=== PATIENT | female | born 1950 | race Caucasian/White ===

== ENCOUNTER → 2020-02-11 | Outpatient (CLI) | payer MEDICARE ==
[2020-02-11 10:44] LABS: BASOPHILS ABSOLUTE AUTO 0.04 K/mm3 (0.00-0.23); BASOPHILS PERCENT AUTO 1 % (0-2); EOSINOPHILS ABSOLUTE AUTO 0.41 K/mm3 (0.00-0.68); EOSINOPHILS PERCENT AUTO 6 % (0-6); Hematocrit 31.9 % (33.0-51.0); Hemoglobin 10.1 g/dL (11.5-16.0); IMMATURE GRAN ABSOLUTE AUTO 0.02 K/mm3 (0.00-0.10); IMMATURE GRAN PERCENT AUTO 0 % (0-1); LYMPHOCYTES ABSOLUTE AUTO 1.62 K/mm3 (0.84-5.20); LYMPHOCYTES PERCENT AUTO 25 % (21-46); MONOCYTES ABSOLUTE AUTO 0.58 K/mm3 (0.16-1.47); MONOCYTES PERCENT AUTO 9 % (4-13); Mean Corpuscular HGB 26.3 pg (26.0-34.0); Mean Corpuscular HGB Conc 31.7 g/dL (31.5-36.5); Mean Corpuscular Volume 83 fL (80-100); Mean Platelet Volume 8.2 fL (9.1-12.4); NEUTROPHILS ABSOLUTE AUTO 3.74 K/mm3 (1.96-9.15); NEUTROPHILS PERCENT AUTO 58 % (41-73); Platelet Count 303 K/mm3 (150-400); RDW Coefficient Variation 14.8 % (11.7-14.2); RDW Standard Deviation 44.5 fL (35.1-46.3); Red Blood Cell Count 3.84 M/mm3 (3.80-5.20); White Blood Cell Count 6.41 K/mm3 (4.00-11.30)
[2020-02-11 11:05] LABS: Alanine Aminotransfer (ALT/SGP 11 U/L (12-78); Albumin, Blood 3.8 g/dL (3.4-5.0); Albumin/Globulin Ratio 0.8 (0.8-1.8); Alk Phos 101 U/L (40-126); Anion Gap 10 mmol/L (6-16); Aspartate Aminotrans (AST/SGOT 14 U/L (12-37); Bilirubin, Total 0.2 mg/dL (0.1-1.0); Blood Urea Nitrogen 21 mg/dL (8-24); Bun/Creatinine Ratio 21.4 (12.0-20.0); CHOL/HDL RATIO 4.3; CO2, Blood 26 mmol/L (21-32); Calcium, Blood 9.2 mg/dL (8.5-10.1); Chloride, Blood 103 mmol/L (98-108); Cholesterol 179 mg/dL (50-200); Creatinine, Blood 0.98 mg/dL (0.40-1.00); Free Thyroxine 1.06 ng/dL (0.70-1.60); Globulin, Blood 4.6 g/dL (2.2-4.0); Glomerular Filtration Rate 56 (60-); Glucose, Blood 132 mg/dL (70-99); HDL Cholesterol 42 mg/dL (>39); LDL/HDL RATIO 2.8; Low Density Lipoprotein Chol 117 mg/dL (<110); Potassium, Blood 4.3 mmol/L (3.5-5.5); Sodium, Blood 139 mmol/L (136-145); Thyroid Stimulating Hormone 1.383 uIU/mL (0.360-4.800); Total Protein, Blood 8.4 g/dL (6.4-8.2); Triglycerides 102 mg/dL (30-160); Very Low Density Lipoprot Chol 20 mg/dL (6-32)
[2020-02-11 13:09] LABS: Percent Saturation 15.4 % (15.0-50.0)
== END | disposition home or self-care (01) ==
LOC: LAB EV 10:37 → LAB SHORT 10:37
PROVIDERS: General Practice
DX: T81.30XA Disruption of wound, unspecified, initial encounter (principal); E11.37X1 Type 2 diabetes mellitus with diabetic macular edema, resolved following treatment, right eye; R53.81 Other malaise; D64.9 Anemia, unspecified
CPT/HCPCS: 80053; 80061; 82728; 83036; 83540; 83550; 84439; 84443; 85025; 87070; 87075; 87077; 87147; 87186; 87205

== ENCOUNTER 2020-03-01 00:26 | Day surgery (SDC) | payer MEDICARE | END 2020-03-01 22:49 | disposition home or self-care (01) | LOC: WOUND 00:26 | DX: E11.622 Type 2 diabetes mellitus with other skin ulcer (principal); L97.816 Non-pressure chronic ulcer of other part of right lower leg with bone involvement without evidence of necrosis ==

== ENCOUNTER 2020-03-10 00:09 | Day surgery (SDC) | payer MEDICARE ==
[2020-03-10] MEDS ORDERED: LEVO750 IV (11:50)
[2020-03-10] MEDS ORDERED: METF500 PO (11:51)
[2020-03-10] MEDS ORDERED: LISI5 PO (11:51)
[2020-03-10] MEDS ORDERED: ASPIR 8181 M1 PO (11:52)
[2020-03-10] MEDS ORDERED: HYDROCODONE-AC1 EAC7 PO (11:52)
[2020-03-10] MEDS ORDERED: Garlic1 EAC1 PO (11:52)
[2020-03-10] MEDS ORDERED: Vitamin D2000 UNIT PO (11:53)
[2020-03-10] MEDS ORDERED: PIOG15 PO (11:53)
--- NOTE | 2020-03-10 12:40 | NUR ---
PT REQUESTING IV REMOVED, HAS CONCERNS ABOUT HER "LARGE DOGS". PT TEACHING THAT MAY GET A POWERGLIDE PLACED THURSDAY, PT IS SCHEDULED FOR 14 DAYS BERNARDO. PT TO DETERMINE THAT AT LATER TIME.
== END 2020-03-10 12:36 | disposition home or self-care (01) ==
LOC: ATC 00:09
DX: L03.115 Cellulitis of right lower limb (principal); E11.622 Type 2 diabetes mellitus with other skin ulcer; L97.816 Non-pressure chronic ulcer of other part of right lower leg with bone involvement without evidence of necrosis
CPT/HCPCS: 96365; J1956

== ENCOUNTER 2020-03-11 00:23 | Day surgery (SDC) | payer MEDICARE ==
[~2020-03-11 00:23] MED LIST: ASPIR 8181 M1 PO; Garlic1 EAC1 PO; HYDROCODONE-AC1 EAC7 PO; LEVO750 IV; LISI5 PO; METF500 PO; PIOG15 PO; Vitamin D2000 UNIT PO
== END 2020-03-11 11:19 | disposition home or self-care (01) ==
LOC: ATC 00:23
DX: L03.115 Cellulitis of right lower limb (principal); E11.622 Type 2 diabetes mellitus with other skin ulcer; L97.816 Non-pressure chronic ulcer of other part of right lower leg with bone involvement without evidence of necrosis
CPT/HCPCS: 96365; J1956

== ENCOUNTER 2020-03-12 00:26 | Day surgery (SDC) | payer MEDICARE ==
--- NOTE | 2020-03-12 12:01 | NUR ---
ATTEMPTED POWERGLIDE, PT AGITATED FROM PRIOR TO GOING INTO ROOM. PT VERY ANXIOUS T/O PROCEDURE, UNABLE TO GET POWERGLIDE, LIDOCAINE USED. PT C/O PAIN AT SITE, NO APPEARANT SWELLING OR REDNESS, OFFERED WARM/COLD PACKS AND PRESSURE DRSG, PT REFUSES ALL THINGS OFFERED.
--- NOTE | 2020-03-12 13:06 | NUR ---
TALKED WITH JOSE HYMAN WHO IS PRESCRIBING MD ABOUT PT NOT BEING HAPPY ABOUT COMING IN FOR IV ABX. PRESCRIPTION FOR ORAL ABX GIVEN TO PT PER JOSE STEIN, PT VERY HAPPY WITH THIS.
== END 2020-03-12 13:05 | disposition home or self-care (01) ==
LOC: ATC 00:26
DX: L03.115 Cellulitis of right lower limb (principal); E11.622 Type 2 diabetes mellitus with other skin ulcer; L97.816 Non-pressure chronic ulcer of other part of right lower leg with bone involvement without evidence of necrosis
CPT/HCPCS: 96365; J1956

== ENCOUNTER 2020-03-15 00:27 | Day surgery (SDC) | payer MEDICARE | END 2020-03-15 22:38 | disposition home or self-care (01) | LOC: WOUND | DX: E11.622 Type 2 diabetes mellitus with other skin ulcer (principal); L03.115 Cellulitis of right lower limb; L97.816 Non-pressure chronic ulcer of other part of right lower leg with bone involvement without evidence of necrosis; Z79.82 Long term (current) use of aspirin; Z79.84 Long term (current) use of oral hypoglycemic drugs ==

== ENCOUNTER 2020-03-22 00:14 | Day surgery (SDC) | payer MEDICARE | END 2020-03-22 23:12 | disposition home or self-care (01) | LOC: WOUND 00:14 | DX: L97.816 Non-pressure chronic ulcer of other part of right lower leg with bone involvement without evidence of necrosis (principal); E11.621 Type 2 diabetes mellitus with foot ulcer; L97.512 Non-pressure chronic ulcer of other part of right foot with fat layer exposed; L03.115 Cellulitis of right lower limb ==

== ENCOUNTER 2020-03-29 00:22 | Day surgery (SDC) | payer MEDICARE | END 2020-03-29 22:54 | disposition home or self-care (01) | LOC: WOUND 00:22 | DX: E11.621 Type 2 diabetes mellitus with foot ulcer (principal); L97.816 Non-pressure chronic ulcer of other part of right lower leg with bone involvement without evidence of necrosis; L03.115 Cellulitis of right lower limb ==

== ENCOUNTER 2020-04-05 00:14 | Day surgery (SDC) | payer MEDICARE | END 2020-04-05 22:43 | disposition home or self-care (01) | LOC: WOUND 00:14 | DX: L03.115 Cellulitis of right lower limb (principal); E11.622 Type 2 diabetes mellitus with other skin ulcer; L97.816 Non-pressure chronic ulcer of other part of right lower leg with bone involvement without evidence of necrosis; Z79.82 Long term (current) use of aspirin; Z79.899 Other long term (current) drug therapy ==

== ENCOUNTER → 2020-05-02 | Outpatient (CLI) | payer MEDICARE ==
[2020-05-02 17:56] LABS: BASOPHILS ABSOLUTE AUTO 0.08 K/mm3 (0.00-0.23); BASOPHILS PERCENT AUTO 1 % (0-2); EOSINOPHILS ABSOLUTE AUTO 0.24 K/mm3 (0.00-0.68); EOSINOPHILS PERCENT AUTO 3 % (0-6); Hematocrit 35.7 % (33.0-51.0); Hemoglobin 10.9 g/dL (11.5-16.0); IMMATURE GRAN ABSOLUTE AUTO 0.01 K/mm3 (0.00-0.10); IMMATURE GRAN PERCENT AUTO 0 % (0-1); LYMPHOCYTES ABSOLUTE AUTO 1.88 K/mm3 (0.84-5.20); LYMPHOCYTES PERCENT AUTO 27 % (21-46); MONOCYTES ABSOLUTE AUTO 0.55 K/mm3 (0.16-1.47); MONOCYTES PERCENT AUTO 8 % (4-13); Mean Corpuscular HGB 26.7 pg (26.0-34.0); Mean Corpuscular HGB Conc 30.5 g/dL (31.5-36.5); Mean Corpuscular Volume 88 fL (80-100); Mean Platelet Volume 8.5 fL (9.1-12.4); NEUTROPHILS ABSOLUTE AUTO 4.21 K/mm3 (1.96-9.15); NEUTROPHILS PERCENT AUTO 61 % (41-73); Platelet Count 326 K/mm3 (150-400); RDW Coefficient Variation 15.7 % (11.7-14.2); RDW Standard Deviation 51.1 fL (35.1-46.3); Red Blood Cell Count 4.08 M/mm3 (3.80-5.20); White Blood Cell Count 6.97 K/mm3 (4.00-11.30)
[2020-05-02 18:15] LABS: C-REACTIVE PROTEIN, EXT RANGE <0.290 mg/dL (0.000-0.300)
[2020-05-02 18:20] LABS: Anion Gap 6 mmol/L (6-16); Blood Urea Nitrogen 17 mg/dL (8-24); Bun/Creatinine Ratio 16.8 (12.0-20.0); CO2, Blood 25 mmol/L (21-32); Calcium, Blood 9.4 mg/dL (8.5-10.1); Chloride, Blood 108 mmol/L (98-108); Creatinine, Blood 1.01 mg/dL (0.40-1.00); Glomerular Filtration Rate 58 (60-); Glucose, Blood 127 mg/dL (70-99); Potassium, Blood 4.3 mmol/L (3.5-5.5); Sodium, Blood 139 mmol/L (136-145)
== END | disposition home or self-care (01) ==
LOC: LAB SHORT 15:22 → LAB SRC 15:22
PROVIDERS: Family Medicine
DX: M86.271 Subacute osteomyelitis, right ankle and foot (principal); Z79.2 Long term (current) use of antibiotics
CPT/HCPCS: 80048; 85025; 86140

== ENCOUNTER → 2020-05-21 | Outpatient (CLI) | payer MEDICARE ==
[2020-05-21 16:57] LABS: BASOPHILS ABSOLUTE AUTO 0.06 K/mm3 (0.00-0.23); BASOPHILS PERCENT AUTO 1 % (0-2); EOSINOPHILS ABSOLUTE AUTO 0.36 K/mm3 (0.00-0.68); EOSINOPHILS PERCENT AUTO 4 % (0-6); Hematocrit 36.1 % (33.0-51.0); IMMATURE GRAN ABSOLUTE AUTO 0.02 K/mm3 (0.00-0.10); IMMATURE GRAN PERCENT AUTO 0 % (0-1); LYMPHOCYTES ABSOLUTE AUTO 1.79 K/mm3 (0.84-5.20); LYMPHOCYTES PERCENT AUTO 22 % (21-46); MONOCYTES ABSOLUTE AUTO 0.48 K/mm3 (0.16-1.47); MONOCYTES PERCENT AUTO 6 % (4-13); Mean Corpuscular HGB Conc 30.5 g/dL (31.5-36.5); Mean Corpuscular Volume 89 fL (80-100); Mean Platelet Volume 8.6 fL (9.1-12.4); NEUTROPHILS ABSOLUTE AUTO 5.38 K/mm3 (1.96-9.15); NEUTROPHILS PERCENT AUTO 67 % (41-73); Platelet Count 333 K/mm3 (150-400); RDW Coefficient Variation 14.8 % (11.7-14.2); RDW Standard Deviation 47.4 fL (35.1-46.3); Red Blood Cell Count 4.08 M/mm3 (3.80-5.20); White Blood Cell Count 8.09 K/mm3 (4.00-11.30)
[2020-05-21 17:23] LABS: C-REACTIVE PROTEIN, EXT RANGE <0.290 mg/dL (0.000-0.300)
[2020-05-21 17:29] LABS: Alanine Aminotransfer (ALT/SGP 21 U/L (12-78); Albumin, Blood 3.5 g/dL (3.4-5.0); Albumin/Globulin Ratio 0.9 (0.8-1.8); Alk Phos 78 U/L (50-136); Anion Gap 7 mmol/L (6-16); Aspartate Aminotrans (AST/SGOT 11 U/L (12-37); Bilirubin, Total 0.1 mg/dL (0.1-1.0); Blood Urea Nitrogen 19 mg/dL (8-24); Bun/Creatinine Ratio 24.1 (12.0-20.0); CO2, Blood 24 mmol/L (21-32); Chloride, Blood 105 mmol/L (98-108); Creatinine, Blood 0.79 mg/dL (0.40-1.00); Globulin, Blood 4.1 g/dL (2.2-4.0); Glomerular Filtration Rate >60 (60-); Glucose, Blood 279 mg/dL (70-99); Potassium, Blood 4.3 mmol/L (3.5-5.5); Sodium, Blood 136 mmol/L (136-145); Total Protein, Blood 7.6 g/dL (6.4-8.2)
== END | disposition home or self-care (01) ==
LOC: LAB HH 15:04
PROVIDERS: Family Medicine
DX: T84.622A Infection and inflammatory reaction due to internal fixation device of right tibia, initial encounter (principal); M86.471 Chronic osteomyelitis with draining sinus, right ankle and foot; B95.2 Enterococcus as the cause of diseases classified elsewhere; B95.61 Methicillin susceptible Staphylococcus aureus infection as the cause of diseases classified elsewhere
CPT/HCPCS: 80053; 85025; 86140

== ENCOUNTER 2020-05-28 00:30 | Day surgery (SDC) | payer MEDICARE | END 2020-05-28 22:55 | disposition home or self-care (01) | LOC: WOUND 00:30 | DX: E11.622 Type 2 diabetes mellitus with other skin ulcer (principal); L97.816 Non-pressure chronic ulcer of other part of right lower leg with bone involvement without evidence of necrosis; G25.81 Restless legs syndrome ==

== ENCOUNTER 2020-06-25 01:01 | Day surgery (SDC) | payer MEDICARE | END 2020-06-25 23:19 | disposition home or self-care (01) | LOC: WOUND 01:01 | DX: E11.622 Type 2 diabetes mellitus with other skin ulcer (principal); L97.816 Non-pressure chronic ulcer of other part of right lower leg with bone involvement without evidence of necrosis; Z79.84 Long term (current) use of oral hypoglycemic drugs | CPT/HCPCS: G0463 ==

== ENCOUNTER 2020-07-05 00:10 | Day surgery (SDC) | payer MEDICARE | END 2020-07-05 22:40 | disposition home or self-care (01) | LOC: WOUND 00:10 | DX: T81.30XA Disruption of wound, unspecified, initial encounter (principal); E11.52 Type 2 diabetes mellitus with diabetic peripheral angiopathy with gangrene; E11.622 Type 2 diabetes mellitus with other skin ulcer; L97.816 Non-pressure chronic ulcer of other part of right lower leg with bone involvement without evidence of necrosis; I96 Gangrene, not elsewhere classified; E11.40 Type 2 diabetes mellitus with diabetic neuropathy, unspecified; I10 Essential (primary) hypertension; Z79.2 Long term (current) use of antibiotics; Z79.82 Long term (current) use of aspirin; Z79.84 Long term (current) use of oral hypoglycemic drugs; Z79.899 Other long term (current) drug therapy; Z88.8 Allergy status to other drugs, medicaments and biological substances; Y83.8 Other surgical procedures as the cause of abnormal reaction of the patient, or of later complication, without mention of misadventure at the time of the procedure | CPT/HCPCS: G0463 ==

== ENCOUNTER 2020-07-12 00:48 | Day surgery (SDC) | payer MEDICARE ==
[2020-07-25] MEDS ORDERED: GABA100 PO (13:24)
== END 2020-07-12 22:52 | disposition home or self-care (01) ==
LOC: WOUND 00:48
DX: T81.31XA Disruption of external operation (surgical) wound, not elsewhere classified, initial encounter (principal); E11.622 Type 2 diabetes mellitus with other skin ulcer; L97.816 Non-pressure chronic ulcer of other part of right lower leg with bone involvement without evidence of necrosis; E11.52 Type 2 diabetes mellitus with diabetic peripheral angiopathy with gangrene; I96 Gangrene, not elsewhere classified; E11.42 Type 2 diabetes mellitus with diabetic polyneuropathy; I10 Essential (primary) hypertension; Z79.82 Long term (current) use of aspirin; Z79.84 Long term (current) use of oral hypoglycemic drugs; Z79.2 Long term (current) use of antibiotics; Z79.899 Other long term (current) drug therapy; Z88.8 Allergy status to other drugs, medicaments and biological substances; Y83.8 Other surgical procedures as the cause of abnormal reaction of the patient, or of later complication, without mention of misadventure at the time of the procedure
CPT/HCPCS: G0463

== ENCOUNTER 2020-07-26 06:06 | Day surgery (SDC) | payer MEDICARE ==
[~2020-07-26 06:06] MED LIST changes: +GABA100 PO
--- NOTE | 2020-07-26 12:08 | NUR ---
LEFT GROIN SOFT AND NON TENDER. INSTRUCTION AND PRECAUTIONS VERBALIZED TO PATIENT ABOUT LEFT GROIN. HEAD OF BED UP 30 DEGREE.
--- NOTE | 2020-07-26 12:26 | NUR ---
LEFT GROIN SITE STABLE. PATIENT AMBULATED TO REST ROOM WITH VERBAL TEACHING AND INSTRUCTION ON GROIN SITE CARE. LEFT GROIN STABLE AFTER AMBULATION.
--- NOTE | 2020-07-26 12:29 | NUR ---
IV SITE DCED WITHG CATHETER INTACT. GROIN SITE STABLE AFTER AMBULATING, PATIENT DRESSED.
--- NOTE | 2020-07-26 12:35 | NUR ---
PATIENT DISCHARGED HOME VIA WHEELCHAIR. RIDE HOME WITH FRIEND. PATIENT A&O GROIN SITE STABLE.
== END 2020-07-26 13:06 | disposition home or self-care (01) ==
LOC: MHTC 06:06
DX: E11.51 Type 2 diabetes mellitus with diabetic peripheral angiopathy without gangrene (principal); I70.201 Unspecified atherosclerosis of native arteries of extremities, right leg; E11.622 Type 2 diabetes mellitus with other skin ulcer; L97.819 Non-pressure chronic ulcer of other part of right lower leg with unspecified severity; E78.00 Pure hypercholesterolemia, unspecified; I10 Essential (primary) hypertension; E11.69 Type 2 diabetes mellitus with other specified complication; M86.68 Other chronic osteomyelitis, other site; M79.7 Fibromyalgia; M19.90 Unspecified osteoarthritis, unspecified site; E78.5 Hyperlipidemia, unspecified; G25.81 Restless legs syndrome; Z79.82 Long term (current) use of aspirin; Z79.84 Long term (current) use of oral hypoglycemic drugs; Z79.899 Other long term (current) drug therapy; Z88.8 Allergy status to other drugs, medicaments and biological substances
CPT/HCPCS: 37228; 75625; 75716; 75774; 99152; 99153; C1725; C1760; C1769; C1887; C1894; J1644; J2250; J3010; J7030; Q9967

== ENCOUNTER → 2022-09-23 | Outpatient (CLI) | payer MEDICARE | END | disposition home or self-care (01) | LOC: LAB SHORT 11:00 | DX: R30.0 Dysuria (principal) | CPT/HCPCS: 87086 ==

== ENCOUNTER 2024-09-27 13:46 | Inpatient (IN) | payer MEDICARE ==
[~2024-09-27] VITALS: Ht 175.3 cm; Wt 63.6 kg
[2024-09-27] MEDS ORDERED: NS 1,000 ML IV SCH (14:25)
[2024-09-27 15:27] LABS: BASOPHILS ABSOLUTE AUTO 0.03 K/mm3 (0.00-0.23); BASOPHILS PERCENT AUTO 0 % (0-2); EOSINOPHILS PERCENT AUTO 0 % (0-6); Hemoglobin 7.7 g/dL (11.5-16.0); IMMATURE GRAN ABSOLUTE AUTO 0.06 K/mm3 (0.00-0.10); IMMATURE GRAN PERCENT AUTO 1 % (0-1); LYMPHOCYTES ABSOLUTE AUTO 0.61 K/mm3 (0.84-5.20); LYMPHOCYTES PERCENT AUTO 5 % (21-46); MONOCYTES ABSOLUTE AUTO 0.84 K/mm3 (0.16-1.47); MONOCYTES PERCENT AUTO 7 % (4-13); Mean Corpuscular HGB 28.4 pg (26.0-34.0); Mean Corpuscular HGB Conc 32.1 g/dL (31.5-36.5); Mean Corpuscular Volume 89 fL (80-100); Mean Platelet Volume 8.7 fL (9.1-12.4); NEUTROPHILS ABSOLUTE AUTO 10.45 K/mm3 (1.96-9.15); NEUTROPHILS PERCENT AUTO 87 % (41-73); Platelet Count 272 K/mm3 (150-400); RDW Coefficient Variation 13.6 % (11.7-14.2); RDW Standard Deviation 44.2 fL (35.1-46.3); Red Blood Cell Count 2.71 M/mm3 (3.80-5.20); White Blood Cell Count 11.99 K/mm3 (4.00-11.30)
[2024-09-27 15:54] LABS: Albumin/Globulin Ratio 0.5 (0.8-1.8); Bilirubin, Total 0.4 mg/dL (0.1-1.0); Bun/Creatinine Ratio 16.3 (12.0-20.0); Calcium, Blood 7.7 mg/dL (8.5-10.1); Creatinine, Blood 0.8 mg/dL (0.40-1.00); Magnesium, Blood 1.5 mg/dL (1.6-2.4); Potassium, Blood 3.4 mmol/L (3.5-5.5)
[2024-09-27 16:16] LABS: Influenza A, PCR NEGATIVE (NEGATIVE); Influenza B, PCR NEGATIVE (NEGATIVE); Resp Syncytial Virus, PCR NEGATIVE (NEGATIVE); SARS-Cov-2 (COVID-19) PCR, MMC NEGATIVE (NEGATIVE)
[2024-09-27] MEDS ORDERED: Ondansetron HCl 2 MG / ML 2ML Vial IV PRN (18:40)
[2024-09-27] MEDS ORDERED: Lactated Ringer's 1,000 ML IV SCH (18:40)
[2024-09-27] MEDS ORDERED: Magnesium Sulf 2 GM/Water 50ML 50 ML IV STA (18:42)
[2024-09-27] MEDS ORDERED: NS 1,000 ML IV ONE (18:45)
[2024-09-27] MEDS ORDERED: CeFAZolin Sodium 2,000 MG in NS 100 ML IV ONE (18:45)
[2024-09-27 18:48] LABS: Source, Urine Foley catheter
[2024-09-27] MEDS ORDERED: Potassium Chloride 20 MEQ TabCR PO ONE (19:00)
[2024-09-27 19:04] LABS: Percent Saturation 7.5 % (15.0-50.0)
[2024-09-27 19:10] LABS: Appearance, Urine Clear (Clear); Bilirubin, Urine Neg (Neg); Blood, Urine Neg (Neg); Color, Urine Yellow (P-Yellow); Glucose Qualitative, Urine 2+ (Neg); Ketones, Urine Neg (Neg); Leukocyte Esterase, Urine 2+ (Neg); Nitrite, Urine Neg (Neg); Protein, Urine 1+ (Neg); Specific Gravity, Urine 1.005 (1.003-1.022); Urobilinogen, Urine NORM (Normal)
[2024-09-27 19:18] LABS: Base Excess Venous -0.4 mmol/L; Bicarbonate Venous 24.1 mmol/L (24.0-30.0); PCO2 Venous 35.6 mmHg (38-42); pH Blood Venous 7.43 (7.34-7.37)
[2024-09-27 19:18] LABS: Bacteria Many /hpf; Squamous Epithelial Cells Few /hpf (Few)
[2024-09-27 19:19] LABS: Yeast/Fungi Urine Rare /hpf
[2024-09-27] MEDS ORDERED: FLU VACC TS2024-25(6MOS UP)/PF 45 MCG/0.5 ML SYRINGE IM ONE (20:00)
[2024-09-27] MEDS ORDERED: NS 250 ML IV PRN (20:40)
[2024-09-27] MEDS ORDERED: Lactobacil 2-S.Thermo-Bifido 1 1 Cap PO SCH (21:00)
[2024-09-27] MEDS ORDERED: Dextrose 50% 50 ML Syringe IV PRN ×2 (21:15→21:55)
[2024-09-27] MEDS ORDERED: D5W-1/2NS 1,000 ML IV SCH (21:15)
[2024-09-28] VITALS: BP 153/69
[2024-09-28] MEDS ORDERED: Acetaminophen 325 MG TABLET PO PRN (00:45)
[2024-09-28 04:06] LABS: Hematocrit 27.5 % (33.0-51.0); Hemoglobin 8.8 g/dL (11.5-16.0); Mean Corpuscular HGB 27.4 pg (26.0-34.0); Mean Corpuscular Volume 86 fL (80-100); Mean Platelet Volume 8.9 fL (9.1-12.4); Platelet Count 324 K/mm3 (150-400); RDW Coefficient Variation 13.5 % (11.7-14.2); RDW Standard Deviation 42.5 fL (35.1-46.3); Red Blood Cell Count 3.21 M/mm3 (3.80-5.20); White Blood Cell Count 12.59 K/mm3 (4.00-11.30)
[2024-09-28 04:13] VITALS: BP 129/62
[2024-09-28 04:22] LABS: International Normalized Ratio 1.07; Prothrombin Time Results 11.4 Sec (9.7-11.5)
--- NOTE | 2024-09-28 06:52 | NUR ---
SHIFT SUMMARY PT A&OX4. INTERMITTANT CONFUSION. FORGETFUL. VSS ON RA. PT FEBRILE AT START OF SHIFT. MD AWARE. TYLENOL GIVEN WITH GOOD EFFECT. PTs POWELL REMAINS IN PLACE, PATENT AND DRAINING WITH GRAVITY. PT C/O PAIN AT L HEEL. TYLENOL GIVEN WITH GO0D RELIEF. PT HAD LARGE BM THIS MORNING. THIS AM PT A LOT MORE ALERT AND ORIENTED. NO FURTHER QUESTIONS OR CONCERNS AT THIS TIME. REPORT GIVEN TO DAY RN.
[2024-09-28] MEDS ORDERED: CeFAZolin Sodium 2,000 MG in NS 100 ML IV SCH (07:00)
[2024-09-28 07:26] LABS: Magnesium, Blood 1.9 mg/dL (1.6-2.4)
[2024-09-28 07:28] LABS: Albumin, Blood 2.2 g/dL (3.4-5.0); Albumin/Globulin Ratio 0.5 (0.8-1.8); Bilirubin, Total 0.2 mg/dL (0.1-1.0); Bun/Creatinine Ratio 14.2 (12.0-20.0); Calcium, Blood 8.6 mg/dL (8.5-10.1); Creatinine, Blood 0.85 mg/dL (0.40-1.00); Globulin, Blood 4.8 g/dL (2.2-4.0)
[2024-09-28] MEDS ORDERED: Insulin Human Lispro 100 Units/ML 3ML Syringe SC SCH (07:30)
[2024-09-28 07:56] VITALS: BP 121/65
[2024-09-28] MEDS ORDERED: Enoxaparin 40 MG/0.4 ML SYR SC SCH (09:00)
[2024-09-28] MEDS ORDERED: Arginine/Glutamine/Calcium Hmb 1 Packet PO SCH (09:30)
[2024-09-28] MEDS ORDERED: Iron Dextran 50 MG / ML 2ML Vial IV ONE (11:25)
[2024-09-28] MEDS ORDERED: Iron Dextran 975 MG in NS 250 ML IV ONE (11:25)
[2024-09-28 14:03] VITALS: BP 122/60
--- NOTE | 2024-09-28 15:30 | NUR ---
Transfer note Pt alert, oriented to self and month and location, unsure of year or city. Pt denies pain, chest pain/pressure, sob, nausea, dizziness and numb/tingling. Pt tele sinus, bp wnl. Spo2 >90% on ra, breathing even and unlabored. Abd soft, tended to lower region, MD notified. Pt receiving iv antibiotics. Pt on d5 with 1/5ns this am at 100ml/hr, new order to titrate down to 50ml/hr this am, CBG this afternoon 254, notified Dr Mendoza new orders for d/c fluids. Pt had fever this afternoon, medicated per emar. 1 blood culture positive, notified Dr Mendoza. Other vss. No other acute changes noted. Report given to Rn assuming care, pt transfered at 1530.
[2024-09-28] MEDS ORDERED: Vancomycin HCL 1,500 MG in NS 250 ML IV ONE (16:35)
--- NOTE | 2024-09-28 16:40 | NUR ---
RN NOTE MS ROBINS WAS TRANSFERED FROM PCU TO MEDICAL UNIT AT 1530HRS. SHE IS ORIENTATED TO HER NAME, KNOWS SHE IS IN [facility] 2023 AND SAID SHE IS HERE FOR BLOOD SUGAR AND LEG WOUND. SHE DENIES HAVING ANY PAIN. SKIN ASSESSMENT DONE WITH TRAN CREWS RN - PHOTOS ARE ALREADY IN THE CHART OF HEEL WOUND AND COCCYX WOUND AND SMALL WOUNDS ON LLE. MEPILEX PLACED ON COCCYX AND PT LYING ON HER LEFT SIDE. FOAM FOOT PROTECTOR PLACED LEFT FOOT. SHE IS [place], PALE SKIN COLOR, QUIET/FALT AFFECT. CALL FROM LAB TO GERENTOLOGICAL PHYSIOTHERAPIST REGARDING BLOOD CULTURES - DR SHAH CALLED AND NOTIFIED AND VANCO ADDED TO ABX. POWELL CATHETER REMOVED AFTER EDUCATION. PT SAID SHE HAS HAD DIARRHEA STOOL RECENTLY, NONE SINCE TRANSFER. SHE SAID SHE HAS A PROSTHESIS BUT RARELY WALKS AT HOME, MOSTLY USES A WHEELCHAIR. BED LOW, CALL LIGHT IN REACH, BED ALARM ON.
--- NOTE | 2024-09-28 18:11 | NUR ---
RN NOTE BLOOD GLUCOSE BEFORE SUPPER 99, NOTICABLE DROP SINCE CHECKED ON PCU MID AFTERNOON. PT DRANK APPLE JUICE. SHE ATE A MINIMAL AMOUNT OF HER SUPPER TRAY. SHE WAS EDUCATED ON THE REASON FOR EATING FOOD THAT WILL SUSTAIN HER BLOOD SUGAR AND OFFERED ALTERNATIVE FOODS OR SUPPLIMENTS OTHER THAN WHAT CAME ON HER MEAL TRAY, ALL OF WHICH SHE REFUSED STATING THAT SHE IS JUST NOT HUNGRY AND DOES NOT WISH ANYTHING ELSE. DR SHAH NOTIFIED THAT BLOOD GLUCOSE HAS GONE DOWN TO 99 AND PT IS REFUSING TO EAT. TELEPHONE ORDER FOR D51/2NS AT 75CC/HR. IF BLOOD GLUCOSE IS STILL TRENDING DOWN AT HS CHECK CHANGE TO Q4HR ACCUCHECK. READ BACK DONE.
[2024-09-28] MEDS ORDERED: D5W-1/2NS 1,000 ML IV SCH (18:20)
[2024-09-28 21:08] VITALS: BP 126/59
[2024-09-29 02:30] VITALS: BP 140/69
--- NOTE | 2024-09-29 04:48 | NUR ---
SHIFT SUMMARY: PT AOX4, FLAT AFFECT, IRRITABLE MOOD. COMPLAINS OF WANTING TO GO HOME, BUT COOPERATIVE IN CARE AND FOLLOWS DIRECTIONS. CALLS APPROPRIATELY. HAD MULTIPLE VOIDS IN BSC EVERY FEW HOURS. ENDORSES SOME URGENCY BUT CAN HOLD IT. HAS BEEN 1PA STAND PIVOT INTO BSC. TOLERATING FLUIDS AND MEDICATION WELL. BLOOD SUGARS HAVE BEEN STABLE THROUGH THE NIGHT. PT RESTING IN BED, BED IN LOWEST POSITION, CALL LIGHT IN REACH. CONTINUING CARE.
[2024-09-29] MEDS ORDERED: Vancomycin HCL 1,000 MG in NS 250 ML IV SCH (05:00)
[2024-09-29 05:51] LABS: Hematocrit 26.1 % (33.0-51.0); Hemoglobin 8.2 g/dL (11.5-16.0); Mean Corpuscular HGB 27.8 pg (26.0-34.0); Mean Corpuscular HGB Conc 31.4 g/dL (31.5-36.5); Mean Corpuscular Volume 89 fL (80-100); Mean Platelet Volume 9.2 fL (9.1-12.4); Platelet Count 307 K/mm3 (150-400); RDW Standard Deviation 45.4 fL (35.1-46.3); Red Blood Cell Count 2.95 M/mm3 (3.80-5.20); White Blood Cell Count 11.66 K/mm3 (4.00-11.30)
[2024-09-29 06:06] LABS: Bun/Creatinine Ratio 20.3 (12.0-20.0); Calcium, Blood 8.5 mg/dL (8.5-10.1); Creatinine, Blood 0.84 mg/dL (0.40-1.00); Potassium, Blood 3.8 mmol/L (3.5-5.5)
[2024-09-29 07:44] VITALS: BP 123/60
[2024-09-29] MEDS ORDERED: Lisinopril 5 MG Tab PO SCH (09:00)
[2024-09-29] MEDS ORDERED: Cholecalciferol 1000 Unit Tablet (=25MCG) PO SCH (09:00)
[2024-09-29] MEDS ORDERED: Aspirin 81 MG TabEC PO SCH (09:00)
[2024-09-29] MEDS ORDERED: Gabapentin 300 MG Cap PO SCH (09:00)
[2024-09-29] MEDS ORDERED: GLIP10 PO (12:56)
[2024-09-29] MEDS ORDERED: METOPROLOL TART5010 PO (12:59)
[2024-09-29 16:11] VITALS: BP 103/64
--- NOTE | 2024-09-29 18:12 | NUR ---
PT HAS BEEN DOING WELL. D5 WAS STOPPED PER DR SHAH AND LAST CBG WAS 122. PT HAS BEEN ENCOURAGED TO EAT. PT DOES NOT HAVE A BIG APPETITED SO ENCOURAGEMENT IS NEEDED. PT HAS BEEN A ONE PERSON TO [facility] PIVOTS WITH LEG. NO DISTRESS NOTED WILL CONTINUE TO MONITOR.
[2024-09-29 20:36] VITALS: BP 134/53
[2024-09-29] MEDS ORDERED: Docusate Sodium/Senna 1 Tab PO SCH (21:00)
[2024-09-30 02:35] VITALS: BP 126/56
[2024-09-30 05:13] LABS: Vancomycin, Trough 20.2 ug/mL (5.0-10.0)
--- NOTE | 2024-09-30 05:30 | NUR ---
PT VERY TIRED AT START OF SHIFT, ABLE TO ANSWER ALL ORIENTATION QUESTIONS CORRECTLY BUT WAS SPEAKING WORD SALAD AT POINTS. HER DAUGHTER, AT BEDSIDE, SAID THAT HAD BEEN HAPPENING SINCE SHE BEGAN FEELING ILL. CBG'S STABLE DURING THE NIGHT (129,136,142), DENIED PAIN, UP WITH 1 PERSON STAND/PIVOT TO BSC, AWAKE WITH DAUGHTER AT BEDSIDE AT THIS TIME, BED ALARM ACTIVE, WILL CONT TO MONITOR UNTIL REPORT GIVEN TO ONCOMING NURSE.
[2024-09-30] MEDS ORDERED: Vancomycin HCL 750 MG in NS 250 ML IV SCH (06:00)
[2024-09-30 07:16] VITALS: BP 117/55
[2024-09-30 16:01] VITALS: BP 142/54
--- NOTE | 2024-09-30 16:46 | NUR ---
SHIFT SUMMARY PATIENT FRUSTRATED AND WANTS TO GO HOME, EDUCATED ON REASONING FOR INPT HOSPITAL STAY. PENDING REPEAT BLOOD CULTURES AND RECEIVING IV ANTIBIOTICS. PT IRRITABLE BUT COOPERATIVE WITH CARE. RIGHT BKA, LEFT HEEL UNSTAGEABLE WOUND. PT IS A STAND-PIVOT TO BSC. EDUCATED TO KEEP HEEL ELEVATED ON PILLOW. ABLE TO MAKE NEEDS KNOWN. CHAGNED BACK TO BLOOD SUGAR CHECK ACHS. POOR APPETITE. A/OX4, ANSWERS ALL ORIENTATION QUESTIONS APPROPRIATELY. CALL LIGHT IN REACH, IMPULSIVE/IMPATIENT, PATIENT IS ABLE TO TRANSFER TO BSC WITH MINIMAL ASSISTANCE.
[2024-09-30 19:12] VITALS: BP 128/52
[2024-09-30 19:21] VITALS: BP 128/52
[2024-10-01 04:37] VITALS: BP 145/61
--- NOTE | 2024-10-01 05:56 | NUR ---
SHIFT SUMMARY PT ASSISTED TO FLOOR BY DAUGHTER WHILE ASSISTING PT TRANSFER TO BSC- THIS OCCURRED DURING BEDSIDE SHIFT REPORT- SEE FALL DOCUMENTATION. PT DENIES ANY INJURY. BED ALARM ON DURING THE NIGHT. PT IRRITABLE WITH CARE AT TIMES, BUT COOPERATIVE. 1 PERSON ASSIST TO BEDSIDE COMMODE, PT DOES HAVE FREQUENCY AND URGENCY. ENCOURAGED PT TO KEEP PRESSURE OFF OF LEFT HEEL AND USE FOAM HEEL PROTECTOR, BUT PT IS RELUCTANT TO DO SO. IV ANTIBIOTICS CONTINUE. PT SLEPT INTERMITTENTLY THROUGH THE NIGHT.
[2024-10-01 07:44] VITALS: BP 126/62
[2024-10-01 15:42] VITALS: BP 139/61
[2024-10-01] MEDS ORDERED: MetFORMIN HCl 500 mg PO SCH (17:00)
--- NOTE | 2024-10-01 17:22 | NUR ---
SHIFT SUMMARY: PATIENT A/OX3-4, [place]SK[place] AND IRRITABLE AT TIMES. PATIENT DENIES CP, SOB, N/V AND DIZZINESS. PATIENT RECEIVED SCHEDULED IV ABX/MEDS PER EMAR. PATIENT HAS MOD APPETITE, CONTINENT/INCONTINENT OF BLADDER, USES BSC c 1 ASSIST. PATIENT DRESSING TO COCCYX C/D/I. VITAL SIGNS REVIEWED. PER ZOË GARCIA PATIENT GOT ACCEPTED TO [facility] FOR ABX INFUSION, AWAITING INSURANCE AUTH. PATIENT AND DAUGHTER (SONALI) AT BEDSIDE UPDATED c THIS PROGRESS, THEY BOTH VERBALIZED UNDERSTANDING AND NO FURTHER QUESTIONS AT THIS TIME. BED ALARM ON FOR SAFETY. CALL LIGHT IN REACH.
[2024-10-01 19:50] VITALS: BP 135/63
[2024-10-02 03:16] VITALS: BP 134/58
--- NOTE | 2024-10-02 05:54 | NUR ---
SHIFT SUMMARY PT SLEPT INTERMITTENTLY THROUGH THE NIGHT. URINARY FREQUENCY AND URGENCY CONTINUE. PT WITH URGE INCONT DURING THE NIGHT. ENCOURAGED PT TO OFF LOAD LEFT HEEL ON PILLOWS. PT REFUSING TO USE PINK FOAM HEEL PROTECTOR. MEDICATED X1 WITH TYLENOL FOR GENERALIZED PAIN- SEE EMAR. BED IN LOWEST POSITION, CALL LIGHT WITHIN REACH, SIDE RAILS UP X2.
[2024-10-02 07:27] VITALS: BP 138/61
[2024-10-02] MEDS ORDERED: MetFORMIN HCl 500 mg PO SCH (08:00)
[2024-10-02 14:21] LABS: Hematocrit 25.1 % (33.0-51.0); Hemoglobin 7.9 g/dL (11.5-16.0); Mean Corpuscular HGB 27.5 pg (26.0-34.0); Mean Corpuscular HGB Conc 31.5 g/dL (31.5-36.5); Mean Corpuscular Volume 88 fL (80-100); Mean Platelet Volume 9.4 fL (9.1-12.4); Platelet Count 474 K/mm3 (150-400); RDW Standard Deviation 44.5 fL (35.1-46.3); Red Blood Cell Count 2.87 M/mm3 (3.80-5.20); White Blood Cell Count 15.49 K/mm3 (4.00-11.30)
[2024-10-02 14:38] LABS: Bun/Creatinine Ratio 30.6 (12.0-20.0); Calcium, Blood 9.3 mg/dL (8.5-10.1); Creatinine, Blood 0.72 mg/dL (0.40-1.00); Potassium, Blood 3.8 mmol/L (3.5-5.5)
[2024-10-02 15:22] VITALS: BP 149/60
--- NOTE | 2024-10-02 17:26 | NUR ---
SHIFT SUMMARY: PATIENT HAS HAD NO NEW CHANGES THIS SHIFT. PATIENT MOOD HAS IMPROVED, PLEASANT AND COOPERATIVE c CARE. PATIENT DENIES CP/PRESSURE, SOB, N/V AND DIZZINESS. PATIENT HAS POOR APPETITE, CONT/INCONT OF BLADDER, ATTENDS PLACED, CHANGED PRN AND USES [facility] [place] 1 ASSIST. PATIENT HAD BM THIS SHIFT, MIPELEX DRESSING CHANGED TO COCCYX. PATIENT RECEIVED SCHEDULED IV ABX/MEDS PER EMAR. VITAL SIGNS REVIEWED. BED ALARM ON FOR SAFETY. CALL LT IN REACH.
[2024-10-02 20:01] VITALS: BP 123/60
[2024-10-03 02:35] VITALS: BP 133/62
--- NOTE | 2024-10-03 05:09 | NUR ---
SHIFT SUMMARY PT SLEPT INTERMITTENTLY THROUGH THE NIGHT. CONTINUES TO HAVE FREQUENCY AND URGENCY WITH URINATION. 1 PERSON MAX PIVOT TO BSC. ECOURAGED PT TO KEEP PRESSURE OFF OF LEFT HEEL, ELEVATED ON PILLOW. LIQUID WASTE TREATMENT PLANT OPERATOR INSERTED POWER GLIDE THAT IS NEEDED FOR SNF. BED IN LOWEST POSITION, CALL LIGHT WITHIN REACH, SIDE RAILS UP X2.
[2024-10-03 07:24] VITALS: BP 111/58
[2024-10-03] MEDS ORDERED: JUVEN PACKET1 EAC3 PO (11:09)
[2024-10-03] MEDS ORDERED: CEFAZOLIN2 GM/50 M3 IV (11:10)
[2024-10-03] MEDS ORDERED: VISBIOME 112.51 EACH PO (11:11)
[2024-10-03] MEDS ORDERED: DOCUZEN 8.6-501 EACH PO (11:11)
[2024-10-03 15:23] VITALS: BP 128/56
--- NOTE | 2024-10-03 17:07 | NUR ---
SHIFT SUMMARY PT CONT LEVEL OF CARE WITH NO ACUTE CHANGES NOTED. PT IS A&O X4 AND ASSIST X1 WITH FWW TO PIVOT TO BEDSIDE COMMODE. MEPLEX CHANGED TO L FOOT/HEEL THIS SHIFT. PT STILL AWAITING ON INSURANCE APPROVAL TO GO TO [facility] TO CONT IV ABT AND REHAB. POSSIBLE DC TOMORROW.
[2024-10-03 19:55] VITALS: BP 164/69
--- NOTE | 2024-10-03 22:31 | NUR ---
PHONE CALL FROM PT DAUGHTER SONALI ASKTING FOR STATUS UPDATE. STATES SHE "WOKE UP IN A PANIC AND WANTED AN UPDATE." THIS NURSE INFORMED HER OF NO ACUTE CHANGES SO FAR IN SHIFT. PT ASSISTED TO BSC USING FWW. SONALI VERBALIZED UNDERSTANDING AND EXPRESSED THANKS FOR HER CARE AT THE HOSPITAL. END OF PHONE CONVERSATION.
[2024-10-04 02:07] VITALS: BP 94/45
[2024-10-04 05:54] VITALS: BP 113/54
--- NOTE | 2024-10-04 05:57 | NUR ---
RADIO REPAIRER DOMESTIC SUMMARY: PT A&O X4. MAKES NEEDS KNOWN TO STAFF. ASSIST X1 USING FWW TO PIVOT TO BSC. MIXED CONTINENCE OF BLADDER. NOTED LOW BP OF 94/45. PT IS ASYMPTOMATIC. RECHECK BP: 113/54. NO ADVERSE SIDE EFFECTS NOTED FOR IV ANTIBIOTICS. PT SLEPT INTERMITTENTLY THROUGH SHIFT. NO ACUTE CHANGES. INDEPENDENT WITH BED MOBILITY. PLAN IS FOR PT TO GO TO SNF PENDING INSURANCE APPROVAL. BED IN LOWEST POSITION. CALL LIGHT IN REACH. CARES CONTINUE ORDERED.
--- NOTE | 2024-10-04 06:05 | NUR ---
TELEPHONE OPERATOR CHIEF SUMMARY: PT A&O X4, MAKES NEEDS KNOWN. PT IS BED RIDDEN AND TOTAL ASSIST WITH BED MOBILITY. TURN SCHEDULE MAINTAINED. RED RASH TO COCCYX WITH SMALL AMOUNT OF BREAKDOWN TO GLUTEAL FOLD. MUPIROCEN CREAM AND MEPILEX APPLIED. EGG CRATE INTACT ON MATTRESS. POWELL CATHETER DRAINING CLOUDY YELLOW URINE WITH SEDIMENT. PT HAD BOWEL CARE DURING DAY SHIFT WITH MINIMAL RESULTS. PT HAD X4 INCONTINENT LOOSE WATERY STOOLS THROUGHOUT SHIFT WITH BED LINEN CHANGE AND LIFT SHEET PLACED. PT REPORTING SOME MILD RELEIF TO ABD DISCOMFORT FROM SEVERE ABD DISTENSION. MEDICATED X1 FOR ABD PAIN WITH PRN OXYCODONE; EFFECTIVE. IV FLAGYL RECEIVED PER EMAR ORDER. PT AWAITING POSSIBLE TRANSFER FOR PLACEMENT OF COLONIC STENT FOR DECOMPRESSION. NO ACUTE CHANGES. BED IN LOWEST POSITION. CALL LIGHT IN REACH. CARES CONTINUE ORDERED.
[2024-10-04] MEDS ORDERED: NS 250 ML IV PRN (07:50)
[2024-10-04 08:05] VITALS: BP 121/61
[2024-10-04 10:44] LABS: SARS-Cov-2 (COVID-19) PCR, MMC NEGATIVE (NEGATIVE)
--- NOTE | 2024-10-04 13:40 | NUR ---
ATTEMPTED TO GIVE REPORT TO NURSE AT [facility] BUT THERE WAS NO ANSWER.
--- NOTE | 2024-10-04 14:57 | NUR ---
DISCHARGE SUMMARY PT DC THIS SHIFT TO [facility]. PT LEFT VIA W/C BY TRANSPORTATION SERVICE. REPORT CALLED AND GIVEN TO GUERITA AT [facility]. PT SENT WITH ALL BELONGINGS. DC INSTRUCTION GONE OVER WITH PT WHOM STATED UNDERSTANDING.
== END 2024-10-04 14:55 | DRG 871 ==
LOC: ER 13:46 → ERHOLD 13:47 → PCU 13:47 → MEDS 13:47 → PCU 20:16 → MEDS 09-28 15:35
PROVIDERS: Emergency Medicine; Internal Medicine; Nurse Practitioner Acute Care; ADMIT Student in an Organized Health Care Education/Training Program
PROC: 0T9B70Z Drainage of Bladder with Drainage Device, Via Natural or Artificial Opening (ICD-10-PCS; principal; 2024-09-27)
PROC: 3E03329 Introduction of Other Anti-infective into Peripheral Vein, Percutaneous Approach (ICD-10-PCS; 2024-09-27)
DX: A41.01 Sepsis due to Methicillin susceptible Staphylococcus aureus (principal); G92.8 Other toxic encephalopathy; L03.116 Cellulitis of left lower limb; N13.30 Unspecified hydronephrosis; K86.1 Other chronic pancreatitis; E11.621 Type 2 diabetes mellitus with foot ulcer; I10 Essential (primary) hypertension; L89.622 Pressure ulcer of left heel, stage 2; E11.40 Type 2 diabetes mellitus with diabetic neuropathy, unspecified; E83.42 Hypomagnesemia; E87.6 Hypokalemia; E11.649 Type 2 diabetes mellitus with hypoglycemia without coma; Z88.8 Allergy status to other drugs, medicaments and biological substances; Z79.2 Long term (current) use of antibiotics; Z79.811 Long term (current) use of aromatase inhibitors; Z79.891 Long term (current) use of opiate analgesic; Z79.899 Other long term (current) drug therapy; Z79.82 Long term (current) use of aspirin; Z79.84 Long term (current) use of oral hypoglycemic drugs; Z87.828 Personal history of other (healed) physical injury and trauma; Z28.21 Immunization not carried out because of patient refusal
CPT/HCPCS: 0241U; 36415; 51702; 70450; 71045; 73620; 74177; 74183; 80048; 80053; 80202; 81001; 82330; 82728; 82803; 82947; 83036; 83540; 83550; 83605; 83690; 83735; 85025; 85027; 85610; 85651; 86140; 87040; 87077; 87086; 87147; 87186; 93005; 93010; 93306; 96360; 99285-25; A9270; A9579; C1751; J0690; J1650; J1750; J3370; J3475; J7030; J7042; J7050; Q9967; U0002

== ENCOUNTER 2024-10-11 06:12 | Day surgery (SDC) | payer MEDICARE ==
[~2024-10-11 06:12] MED LIST changes: +CEFAZOLIN2 GM/50 M3 IV; +DOCUZEN 8.6-501 EACH PO; +GLIP10 PO; +JUVEN PACKET1 EAC3 PO; +METOPROLOL TART5010 PO; +VISBIOME 112.51 EACH PO
[2024-10-11] MEDS ORDERED: Lidocaine HCl 4% Cream 5 GM ONE (12:57)
== END 2024-10-11 23:00 | disposition home or self-care (01) ==
LOC: WOUND 06:12
DX: E11.621 Type 2 diabetes mellitus with foot ulcer (principal); L97.422 Non-pressure chronic ulcer of left heel and midfoot with fat layer exposed; I10 Essential (primary) hypertension; L03.90 Cellulitis, unspecified; E11.51 Type 2 diabetes mellitus with diabetic peripheral angiopathy without gangrene
CPT/HCPCS: A6214; A9270; G0463

== ENCOUNTER 2024-10-18 08:26 | Day surgery (SDC) | payer MEDICARE ==
[2024-10-18] MEDS ORDERED: Lidocaine HCl 4% Cream 5 GM ONE (09:44)
== END 2024-10-18 23:00 | disposition home or self-care (01) ==
LOC: WOUND 08:26
DX: E11.621 Type 2 diabetes mellitus with foot ulcer (principal); L97.422 Non-pressure chronic ulcer of left heel and midfoot with fat layer exposed; E11.51 Type 2 diabetes mellitus with diabetic peripheral angiopathy without gangrene; G25.81 Restless legs syndrome
CPT/HCPCS: A6213; A9270

== ENCOUNTER 2024-10-27 00:26 | Inpatient (IN) | payer MEDICARE ==
[~2024-10-27] VITALS: Ht 172.7 cm; Wt 54.4 kg
[2024-10-27 01:06] LABS: BASOPHILS ABSOLUTE AUTO 0.05 K/mm3 (0.00-0.23); BASOPHILS PERCENT AUTO 0 % (0-2); EOSINOPHILS PERCENT AUTO 0 % (0-6); Hematocrit 26.6 % (33.0-51.0); Hemoglobin 8.1 g/dL (11.5-16.0); IMMATURE GRAN PERCENT AUTO 1 % (0-1); LYMPHOCYTES ABSOLUTE AUTO 0.64 K/mm3 (0.84-5.20); LYMPHOCYTES PERCENT AUTO 4 % (21-46); MONOCYTES ABSOLUTE AUTO 0.67 K/mm3 (0.16-1.47); MONOCYTES PERCENT AUTO 5 % (4-13); Mean Corpuscular HGB 26.6 pg (26.0-34.0); Mean Corpuscular HGB Conc 30.5 g/dL (31.5-36.5); Mean Corpuscular Volume 88 fL (80-100); Mean Platelet Volume 9.2 fL (9.1-12.4); NEUTROPHILS ABSOLUTE AUTO 13.54 K/mm3 (1.96-9.15); NEUTROPHILS PERCENT AUTO 90 % (41-73); Platelet Count 421 K/mm3 (150-400); RDW Coefficient Variation 14.9 % (11.7-14.2); RDW Standard Deviation 47.8 fL (35.1-46.3); Red Blood Cell Count 3.04 M/mm3 (3.80-5.20)
[2024-10-27 01:19] LABS: Albumin, Blood 2.3 g/dL (3.4-5.0); Albumin/Globulin Ratio 0.5 (0.8-1.8); Bilirubin, Total 0.3 mg/dL (0.1-1.0); Bun/Creatinine Ratio 38.4 (12.0-20.0); Calcium, Blood 8.9 mg/dL (8.5-10.1); Creatinine, Blood 2.79 mg/dL (0.40-1.00); Globulin, Blood 5.1 g/dL (2.2-4.0); Potassium, Blood 4.7 mmol/L (3.5-5.5); Total Protein, Blood 7.4 g/dL (6.4-8.2)
[2024-10-27] MEDS ORDERED: NS 1,000 ML IV SCH ×2 (01:45→14:00)
[2024-10-27] MEDS ORDERED: CefTRIAXone Sodium 1,000 MG in NS 50 ML IV ONE (01:55)
[2024-10-27] MEDS ORDERED: FLU VACC TS2024-25(6MOS UP)/PF 45 MCG/0.5 ML SYRINGE IM ONE (02:25)
[2024-10-27] MEDS ORDERED: Ondansetron HCl 2 MG / ML 2ML Vial IV PRN (02:30)
[2024-10-27] MEDS ORDERED: Sodium Bicarb 8.4% Inj 100 MEQ in Sodium Chloride 0.45% 1,000 ML IV SCH (02:35)
[2024-10-27] MEDS ORDERED: Albumin (Human) 25gm/100ml 100 ML IV ONE (02:35)
[2024-10-27 03:05] LABS: Hematocrit 26.4 % (33.0-51.0); Hemoglobin 8.2 g/dL (11.5-16.0)
[2024-10-27 04:10] LABS: Source, Urine Clean Catch
[2024-10-27 04:19] LABS: Bilirubin, Urine Neg (Neg); Blood, Urine 1+ (Neg); Glucose Qualitative, Urine Neg (Neg); Ketones, Urine Neg (Neg); Leukocyte Esterase, Urine 2+ (Neg); Nitrite, Urine Neg (Neg); Protein, Urine 2+ (Neg); Urobilinogen, Urine NORM (Normal)
[2024-10-27 04:33] LABS: Appearance, Urine Hazy (Clear); Color, Urine Yellow (P-Yellow)
[2024-10-27 04:34] LABS: Amorphous Light (0-Heavy); Bacteria Mod /hpf; Red Blood Cells, Urine 0-2 /hpf (0-2); Squamous Epithelial Cells Mod /hpf (Few)
[2024-10-27 04:35] LABS: Granular Casts 0-2 /lpf (0)
[2024-10-27 04:39] LABS: IMMATURE RETIC FRACTION 10.1 % (2.3-16.0); RETIC HGB EQUIVALENT 26.7 pg (28.20-36.60); RETICULOCYTE ABSOLUTE 0.0492 M/mm3 (0.0200-0.1100); RETICULOCYTE COUNT PERCENT 1.64 % (0.50-2.50)
[2024-10-27 04:54] LABS: Percent Saturation 17.7 % (15.0-50.0)
[2024-10-27] MEDS ORDERED: Pantoprazole Sodium 40 MG Injection IV SCH (06:00)
[2024-10-27] MEDS ORDERED: VITAMIN D31000 UNI1 (08:13)
[2024-10-27] MEDS ORDERED: ACET500 PO (08:13)
[2024-10-27] MEDS ORDERED: METO50 PO (08:13)
[2024-10-27] MEDS ORDERED: PRAV20 PO (08:14)
[2024-10-27] MEDS ORDERED: Heparin Sodium 5000 Units/ML 1ML MDV SC SCH (09:00)
[2024-10-27] MEDS ORDERED: Amitriptyline H25 MG PO (09:06)
[2024-10-27 09:28] LABS: Hematocrit 26.2 % (33.0-51.0); Hemoglobin 7.9 g/dL (11.5-16.0)
[2024-10-27 10:48] LABS: Alanine Aminotransfer (ALT/SGP <6 U/L (12-78); Albumin, Blood 2.7 g/dL (3.4-5.0); Albumin/Globulin Ratio 0.6 (0.8-1.8); Alk Phos 48 U/L (50-136); Anion Gap 16 mmol/L (3-11); Aspartate Aminotrans (AST/SGOT 11 U/L (12-37); Bilirubin, Total 0.2 mg/dL (0.1-1.0); Blood Urea Nitrogen 111 mg/dL (8-24); Bun/Creatinine Ratio 35.2 (12.0-20.0); CO2, Blood 22 mmol/L (21-32); Calcium, Blood 8.2 mg/dL (8.5-10.1); Chloride, Blood 106 mmol/L (98-108); Creatinine, Blood 3.15 mg/dL (0.40-1.00); Globulin, Blood 4.3 g/dL (2.2-4.0); Glomerular Filtration Rate 15 (60-); Glucose, Blood 125 mg/dL (70-99); Potassium, Blood 4.6 mmol/L (3.5-5.5); Sodium, Blood 139 mmol/L (136-145)
[2024-10-27] MEDS ORDERED: Lactated Ringer's 500 ML IV SCH (12:00)
[2024-10-27] MEDS ORDERED: Lactated Ringer's 1,000 ML IV SCH (14:15)
[2024-10-27 15:11] VITALS: BP 117/56
[2024-10-27] MEDS ORDERED: Insulin Human Lispro 100 Units/ML 3ML Syringe SC SCH (16:30)
[2024-10-27 16:47] LABS: Hematocrit 24.6 % (33.0-51.0); Hemoglobin 7.5 g/dL (11.5-16.0)
[2024-10-27 17:13] LABS: Bun/Creatinine Ratio 38.6 (12.0-20.0); Calcium, Blood 7.9 mg/dL (8.5-10.1); Creatinine, Blood 3.03 mg/dL (0.40-1.00); Potassium, Blood 4.1 mmol/L (3.5-5.5)
--- NOTE | 2024-10-27 17:13 | NUR ---
ADMISSION SUMMARY PT ARRIVES TO UNIT FROM ED AT APPROX 1500. USING SLIDE SHEET PT TRANSFERED TO HOSPITAL BED BY 4 STAFF MEMBERS, PT TOLERATED TRANSFER WELL. SKIN ASSESSMENT COMPLETED BY 2 RN, WOUND PHOTOS COMPLETED AND PLACED IN PT CHART. WOUNDS CLEANSED AND MEPILEX APPLIED. 1 BAG LR (1000 ML) INFUSED PER ORDERS, NS CURRENTLY RUNNING AT 200 ML/HR PER ORDERS IN IV IN LEFT AC. ADMISSION COMPLETED INCLUDING MEDICATION RECONCILIATION AND HEAD-TO-TOE ASSESSMENT. PT DAUGHTER TOOK HOME ALL VALUABLES BESIDES PT PHONE. POWELL PLACED IN ED, MINIMAL URINE IN DRAINAGE BAG. BLADDER SCAN COMPLETED, 30 ML DETECTED IN BLADDER. PT DENIES TENDERNESS WITH PALPATION OF ABD/BLADDER, NO DISTENTION NOTED. PT TOLERATING CLEAR LIQUIDS AT THIS TIME. PT A/Ox4, FALLS ASLEEP QUICKLY WITHOUT CONTINUOUS INTERACTION. PT CURRENTLY RESTING IN HOSPITAL BED WITH BED IN LOWEST POSITION AND CALL LIGHT WITHIN REACH, DAUGHTER AT BEDSIDE. AWAITING TELE FROM [employer] TO APPLY.
--- NOTE | 2024-10-27 18:28 | NUR ---
BLADDER SCAN COMPLETE, UNABLE TO LOCATE BLADDER/MEASURE ANY URINE IN BLADDER. MINIMAL URINE NOTED IN URINE DRAINAGE BAG. PT DENIES PAIN WITH PALPATION AND DURING BLADDER SCAN, NO DISTENTION NOTED.
[2024-10-27 19:14] VITALS: BP 100/45
[2024-10-27 21:10] LABS: Hematocrit 21.4 % (33.0-51.0); Hemoglobin 6.5 g/dL (11.5-16.0)
--- NOTE | 2024-10-27 22:19 | NUR ---
B 6.5 @2056. THIS MANAGER [facility] [facility]ORE CALLED THE ON-CALL HOSPITALIST SON. NEW T-ORDER RECEIVED: I UNIT RBC NOW, FOLLOW UP WITH H&H. COMBINE INSPECTOR PAULA NOTIFIED. ENTERED THE ORDER TO [employer].
[2024-10-27] MEDS ORDERED: NS 250 ML IV PRN (23:00)
[2024-10-28] VITALS (12 sets, daily range): BP systolic 113–151; BP diastolic 52–71
--- NOTE | 2024-10-28 05:15 | NUR ---
SHIFT SUMMARY @HS PT A/O X2 SELF AND PERSON, CONFUSED AND LETHARGIC. AROUSABLE. PT'S DAUGHTER SONALI BY THE BEDSIDE T/O THIS SHIFT. Q6HR H&H @2056: 6.5/21.4. THIS CARE TRANSITION MGR CALLED AND NOTIFIED THE ON-CALL HOSPITALIST RAILROAD ENGINEER.KATYA: 1UNIT OF RBC'S AND F/O H&H ORDERED. DR. SHAH CAME BY THE BEDSIDE TO SIGN THE CONSENT FOR THE TRANSFUSION/MET WITH PT'S DAUGHTER SONALI. ZOË GimenezINITIATED THE TRANSFUSION @0002. PT TOLERATED WELL. PT REPORTS FEELING BETTER AFTER TRANSFUSION, A/O X3. VSS. NS 200MLS/HR 3/3 INFUSING ORDERED. ACUTE POWELL CATHETER IN PLACE, DRAINING YELLOW COLOR URINE, OUTPUT 350 MLS. BLADDER SCAN QSHIFT:125 MLS. PT IS ON CLEAR LIQUID DIET; NO PO INTAKE DURING THIS SHIFT. TELE: SR @83. MEPILEX C/D/I ON LEFT HEEL, MEPILEX C/D/I ON COCCYX. BED AT THE LOWEST POSITION, CALL LIGHT W/I REACH. REPOSITIONED IN BED, FLOATED WITH PILLOWS. BED ALARM FOR SAFETY.
[2024-10-28 05:23] LABS: BASOPHILS ABSOLUTE AUTO 0.06 K/mm3 (0.00-0.23); BASOPHILS PERCENT AUTO 1 % (0-2); EOSINOPHILS PERCENT AUTO 2 % (0-6); Hematocrit 31.9 % (33.0-51.0); Hemoglobin 9.7 g/dL (11.5-16.0); IMMATURE GRAN ABSOLUTE AUTO 0.09 K/mm3 (0.00-0.10); IMMATURE GRAN PERCENT AUTO 1 % (0-1); LYMPHOCYTES ABSOLUTE AUTO 0.79 K/mm3 (0.84-5.20); LYMPHOCYTES PERCENT AUTO 6 % (21-46); MONOCYTES ABSOLUTE AUTO 0.74 K/mm3 (0.16-1.47); MONOCYTES PERCENT AUTO 6 % (4-13); Mean Corpuscular HGB 26.7 pg (26.0-34.0); Mean Corpuscular HGB Conc 30.4 g/dL (31.5-36.5); Mean Corpuscular Volume 88 fL (80-100); Mean Platelet Volume 9.1 fL (9.1-12.4); NEUTROPHILS ABSOLUTE AUTO 10.57 K/mm3 (1.96-9.15); NEUTROPHILS PERCENT AUTO 85 % (41-73); Platelet Count 324 K/mm3 (150-400); RDW Coefficient Variation 15.1 % (11.7-14.2); RDW Standard Deviation 49.5 fL (35.1-46.3); Red Blood Cell Count 3.63 M/mm3 (3.80-5.20); White Blood Cell Count 12.45 K/mm3 (4.00-11.30)
[2024-10-28 05:52] LABS: Bun/Creatinine Ratio 30.5 (12.0-20.0); Calcium, Blood 7.6 mg/dL (8.5-10.1); Creatinine, Blood 3.41 mg/dL (0.40-1.00); Potassium, Blood 4.2 mmol/L (3.5-5.5)
[2024-10-28] MEDS ORDERED: Lactated Ringer's 1,000 ML IV SCH ×2 (08:10→16:00)
[2024-10-28] MEDS ORDERED: Ascorbic Acid 500 MG Tab PO SCH (09:00)
[2024-10-28] MEDS ORDERED: Zinc Sulfate 220 MG Cap (Provides 50MG) PO SCH (09:00)
--- NOTE | 2024-10-28 10:11 | NUR ---
NOTE: PATIENT HAS POWELL AND WAS PLACED IN ED FOR ACUTE RETENTION. THIS RN WAS NOTIFIED BY AALIYAH, COOKY PACKER REGARDING POWELL AND TO OBTAIN A DR'S ORDER. NOTIFIED DR. BUSTILLOS REGARDING THIS ISSUE. PER DR. BUSTILLOS SHE WILL COORDINATE c DR. PATEL IF POWELL IS APPROPRIATE TO CONTINUE AND IF DOES SHE WILL PLACE THE ORDER IN.
--- NOTE | 2024-10-28 10:18 | NUR ---
NOTE: DR. PATEL ROUND ON PATIENT, DISCUSS REGARDING POWELL PLACED IN ED FOR ACUTE RETENTION. PER DR. PATEL TO CONTINUE POWELL FOR STRICT I/O'S.
--- NOTE | 2024-10-28 10:32 | NUR ---
NOTE: PATIENT REPORTS CP WHILE CONVERSING c DR. PATEL IN ROOM. DR. PATEL PLACED ORDER FOR ECG, GI COCKTAIL AND TO NOFIED HIM AFTER MEDS ADMINISTRATION.
[2024-10-28] MEDS ORDERED: Mag Hydrox/Al Hydrox/Simeth 18 ML,Lidocaine 2% Viscous Soln 9 ML,Atropine/Scopalam/Hyos... PO ONE (10:35)
--- NOTE | 2024-10-28 11:13 | NUR ---
NOTE: PATIENT RECEIVED GI COCKTAIL AT 1041; ASSESS PATIENT 30 MINS LATER, REPORTS "MY CP COMPLETELY GONE, BUT NOW I HAVE PAIN TO MY UPPER MID SPINE/BACK." NOTIFIED DR. PATEL, NO NEW ORDER RECEIVED AT THIS TIME.
--- NOTE | 2024-10-28 11:51 | NUR ---
NOTIFIED DR BUSTILLOS NOTIFIED OF STG 1 WOUND ON COCCYX.
[2024-10-28] MEDS ORDERED: Aspirin 81 MG TabEC PO SCH (13:00)
[2024-10-28 15:19] LABS: Bun/Creatinine Ratio 26.9 (12.0-20.0); Calcium, Blood 7.4 mg/dL (8.5-10.1); Creatinine, Blood 3.5 mg/dL (0.40-1.00); Potassium, Blood 4.1 mmol/L (3.5-5.5)
--- NOTE | 2024-10-28 16:44 | NUR ---
SHIFT SUMMARY: PATIENT A/OX2-3, [place] AND CONFUSED AT TIMES. PATIENT CHEST AND UPPER BACK PAIN RESSOLVED AFTER RECEIVING GI COCKTAIL. PATIENT ON TELE, ST HR IN THE LOW 100'S BPM. PATIENT HAS POWELL FOR ACCURATE I/O'S, PATENT DRAINING CLEAR YELLOW c A TOTAL URINE OUTPUT OF 1,775 MLS AND 1 MIDIUM, BROWN BM THIS SHIFT. MIPELEX DRESSING CHANGED TO COCCYX AND L FOOT. PATIENT HAS POOR APPETITE. RECEIVED SCHEDULED MEDS PER EMAR. VITAL SIGNS REVIEWED. PATIENT HAS PIV TO RAC SL, LAC INFUSING LR AT 150 MLS/HR. VITAL SIGNS REVIEWED. BED ALARM ON FOR SAFETY. CALL LIGHT IN REACH. PATIENT DAUGHTER AT BEDSIDE ON/OFF T/O SHIFT, UPDATE GIVEN VERBALIZED UNDERSTANDING AND NO FURTHER QUESTIONS.
[2024-10-28] MEDS ORDERED: Amitriptyline HCl 25 MG Tab PO SCH (21:00)
[2024-10-28] MEDS ORDERED: Metoprolol Tartrate 50 MG Tab PO SCH (21:00)
--- NOTE | 2024-10-29 04:21 | NUR ---
SHIFT SUMMARY PT ALERT ORIENTED TO SELF AND PLACE UNSURE ABOUT THE DATE. POWELL CATH INTACT DRAINING YELLOW URINE. SHES REFUSING TO EAT ANYTHING AND WOULDNT EAT ANY DINNER OR TAKE A SUPPLEMENT. PTS DAUGHTER IS HERE AT BEDSIDE. REMAINS ON TELEMETRY AT [facility] AT A RATE OF 97. SHE REFUSED TO TAKE ANY OF HER SCHEDULED NIGHT MEDS. CONTINUES ON LR AT 150 X 2 LITERS. NO C/O CHEST PAIN OR TIGHTNESS THIS SHIFT. VSS ON RA SATTING AT 98%. RESTING IN BED AT THIS TIME WITH CALL LIGHT IN REACH
[2024-10-29 05:16] LABS: BASOPHILS ABSOLUTE AUTO 0.02 K/mm3 (0.00-0.23); BASOPHILS PERCENT AUTO 0 % (0-2); EOSINOPHILS ABSOLUTE AUTO 0.19 K/mm3 (0.00-0.68); EOSINOPHILS PERCENT AUTO 2 % (0-6); Hemoglobin 9.2 g/dL (11.5-16.0); IMMATURE GRAN ABSOLUTE AUTO 0.07 K/mm3 (0.00-0.10); IMMATURE GRAN PERCENT AUTO 1 % (0-1); LYMPHOCYTES ABSOLUTE AUTO 0.93 K/mm3 (0.84-5.20); LYMPHOCYTES PERCENT AUTO 9 % (21-46); MONOCYTES ABSOLUTE AUTO 0.91 K/mm3 (0.16-1.47); MONOCYTES PERCENT AUTO 9 % (4-13); Mean Corpuscular HGB Conc 31.7 g/dL (31.5-36.5); Mean Corpuscular Volume 85 fL (80-100); NEUTROPHILS ABSOLUTE AUTO 8.39 K/mm3 (1.96-9.15); NEUTROPHILS PERCENT AUTO 80 % (41-73); Platelet Count 314 K/mm3 (150-400); RDW Coefficient Variation 15.8 % (11.7-14.2); RDW Standard Deviation 49.1 fL (35.1-46.3); Red Blood Cell Count 3.41 M/mm3 (3.80-5.20); White Blood Cell Count 10.51 K/mm3 (4.00-11.30)
[2024-10-29 05:48] LABS: Bun/Creatinine Ratio 26.9 (12.0-20.0); Creatinine, Blood 3.2 mg/dL (0.40-1.00); Potassium, Blood 3.6 mmol/L (3.5-5.5)
[2024-10-29 07:35] VITALS: BP 148/74
[2024-10-29] MEDS ORDERED: Lisinopril 5 MG Tab PO SCH (09:00)
[2024-10-29 10:46] LABS: Magnesium, Blood 1.5 mg/dL (1.6-2.4); Phosphorus, Blood 2.5 mg/dL (2.5-4.9)
[2024-10-29] MEDS ORDERED: Lactated Ringer's 1,000 ML IV SCH (11:00)
[2024-10-29] MEDS ORDERED: Mag Sulfate 1 GM/D5% 100ML 100 ML IV STA (11:11)
[2024-10-29 15:38] LABS: Calcium, Blood 8.2 mg/dL (8.5-10.1); Creatinine, Blood 2.82 mg/dL (0.40-1.00); Potassium, Blood 3.4 mmol/L (3.5-5.5)
[2024-10-29] MEDS ORDERED: Acetaminophen 325 MG TABLET PO PRN (15:50)
[2024-10-29 16:29] VITALS: BP 141/74
--- NOTE | 2024-10-29 16:51 | NUR ---
VISITED [facility] THIS SHIFT. HER DAUGHTER IS AT BEDSIDE. WE DISCUSSED CODE STATUS BREIFLY. PATIENT EXPRESSED THAT SHE IS OK HAVING EVERYTHING DONE. DAUGHTER RELAYED THAT SHE BELIEVES HER POLST REFLECTS THAT THE PATIENT WOULD LIKE TO BE A DNR. PATIENT REQUESTED THAT HER DAUGHTER BRING POLST BACK AND WILL REVIEW AND DISCUSS.
--- NOTE | 2024-10-29 18:10 | NUR ---
SHIFT SUMMARY: PATIENT A/OX3-4, ANSWER TO QUESTIONS APPROPRIATELY AND ABLE TO MAKE NEEDS KNOWN. OVERALL, PATIENT MENTATION HAS IMPROVED TODAY. PATIENT DENIES CP/PRESSURE, SOB, N/V AND DIZZINESS. PATIENT HAS HAD NO EVENTS ON TELE, SR/ST HR IN THE HIGH 80'S TO LOW 100'S BPM. PATIENT HAS FAIR APPETITE, INCONTINENT OF BOWEL, POWELL DC'D AT 1818. PATIENT RECEIVED BEDBATH AND LINEN CHANGED. MIPELEX DRESSING CHANGED TO COCCYX AND L FOOT. VITAL SIGNS REVIEWED. PATIENT RECEIVED OT DOSE IV MAGSULFATE. PATIENT HAS 2 PIV ACCESS; RAC SL, LAC INFUSING LR AT 100 MLS/HR. BED ALARM ON FOR SAFETY. CALL LIGHT IN REACH. DAUGHTER (SONALI) AT BEDSIDE ON/OFF T/O SHIFT AND PLAN TO STAYED OVERNIGHT.
[2024-10-29 20:20] VITALS: BP 157/71
[2024-10-29] MEDS ORDERED: Mirtazapine 15 MG SoluTab PO SCH (21:00)
[2024-10-29] MEDS ORDERED: Protein Supplement 30 ML UD PO SCH (21:00)
[2024-10-30 04:50] VITALS: BP 160/80
[2024-10-30 04:54] LABS: BASOPHILS ABSOLUTE AUTO 0.04 K/mm3 (0.00-0.23); BASOPHILS PERCENT AUTO 0 % (0-2); EOSINOPHILS ABSOLUTE AUTO 0.24 K/mm3 (0.00-0.68); EOSINOPHILS PERCENT AUTO 2 % (0-6); Hematocrit 31.4 % (33.0-51.0); Hemoglobin 10.1 g/dL (11.5-16.0); IMMATURE GRAN ABSOLUTE AUTO 0.09 K/mm3 (0.00-0.10); IMMATURE GRAN PERCENT AUTO 1 % (0-1); LYMPHOCYTES ABSOLUTE AUTO 0.77 K/mm3 (0.84-5.20); LYMPHOCYTES PERCENT AUTO 6 % (21-46); MONOCYTES ABSOLUTE AUTO 0.76 K/mm3 (0.16-1.47); MONOCYTES PERCENT AUTO 6 % (4-13); Mean Corpuscular HGB 26.7 pg (26.0-34.0); Mean Corpuscular HGB Conc 32.2 g/dL (31.5-36.5); Mean Corpuscular Volume 83 fL (80-100); Mean Platelet Volume 8.9 fL (9.1-12.4); NEUTROPHILS PERCENT AUTO 85 % (41-73); Platelet Count 357 K/mm3 (150-400); RDW Coefficient Variation 15.2 % (11.7-14.2); RDW Standard Deviation 45.9 fL (35.1-46.3); Red Blood Cell Count 3.78 M/mm3 (3.80-5.20)
[2024-10-30 05:14] LABS: Bun/Creatinine Ratio 30.1 (12.0-20.0); Calcium, Blood 8.3 mg/dL (8.5-10.1); Creatinine, Blood 2.26 mg/dL (0.40-1.00); Magnesium, Blood 1.8 mg/dL (1.6-2.4); Potassium, Blood 3.2 mmol/L (3.5-5.5)
[2024-10-30] MEDS ORDERED: Potassium Chloride 40 MEQ in NS 250 ML IV ONE (06:55)
[2024-10-30] MEDS ORDERED: Lactated Ringer's 1,000 ML IV SCH (07:00)
[2024-10-30 07:44] VITALS: BP 117/71
[2024-10-30] MEDS ORDERED: Lactated Ringer's 500 ML IV SCH (07:45)
[2024-10-30] MEDS ORDERED: Thiamine HCl 100 MG Tab PO SCH (09:00)
[2024-10-30] MEDS ORDERED: Potassium Chloride 20 MEQ TabCR PO SCH (09:00)
[2024-10-30] MEDS ORDERED: ASCO500 PO (10:12)
[2024-10-30] MEDS ORDERED: MIRT15ST PO (10:13)
[2024-10-30] MEDS ORDERED: B-1100 M1 PO (10:13)
--- NOTE | 2024-10-30 11:08 | NUR ---
SHIFT/DISCHARGE SUMMARY: PATIENT HAS HAD NO ACUTE CHANGES THIS SHIFT. PATIENT DENIES CP/PRESSURE, SOB, N/V AND DIZZINESS. PATIENT RECEIVED SCHEDULED MEDS PER EMAR. PATIENT DECLINED PT/OT EVAL. PER PATIENT " I ALREADY HAVE HOME HEALTH PT/OT AND WOUND CARE FROM [facility] THAT COMES OVER TWICE A WEEK IN MY HOUSE." NOTIFIED DR. GR. MIPELEX DRESSING CHANGED TO COCCYX/L FOOT. PATIENT RECEIVED OT DOSE PO K P[ER ORDER. VITAL SIGNS REVIEWED. PATIENT HAS MOD APPETITE, CONTINENT OF BOWEL/BLADDER, UP TO BSC c 1 ASSIST. PIV DC'D BY DIGITAL CAMERA TECHNICIAN. PATIENT DISCHARGE HOME. DISHCARGE INSTRUCTIONS PACKET GIVEN TO PATIENT. PATIENT EDUCATED ON ADMITTING DX'S OF SEDA, S/S, TX, NEW RX, WOUND CARE AND TO F/U c PCP. PATIENT AND DAUGHTER (SONALI) VERBALIZED UNDERSTANDING AND NO FURTHER QUESTIONS. RX WAS FAXED TO PATIENT PREFERRED [facility]. ALL PERSONAL NBELONGINGS WERE SENT c THE PATIENT. PATIENT LEFT THE ROOM AT 1041, TRANSPORTED VIA WHEELCHAIR BY [facility] TO PATIENT ENTRANCE.
== END 2024-10-30 10:53 | disposition home or self-care (01) | DRG 682 ==
LOC: ER 00:26 → ERHOLD 00:27 → MEDS 14:49
PROVIDERS: Emergency Medicine; Student in an Organized Health Care Education/Training Program; ADMIT Internal Medicine
PROC: 30233N1 Transfusion of Nonautologous Red Blood Cells into Peripheral Vein, Percutaneous Approach (ICD-10-PCS; principal; 2024-10-27)
PROC: 30233J1 Transfusion of Nonautologous Serum Albumin into Peripheral Vein, Percutaneous Approach (ICD-10-PCS; 2024-10-27)
DX: N17.9 Acute kidney failure, unspecified (principal); G92.8 Other toxic encephalopathy; E87.21 Acute metabolic acidosis; R65.10 Systemic inflammatory response syndrome (SIRS) of non-infectious origin without acute organ dysfunction; E46 Unspecified protein-calorie malnutrition; Z68.1 Body mass index [BMI] 19.9 or less, adult; L89.621 Pressure ulcer of left heel, stage 1; Z28.21 Immunization not carried out because of patient refusal; E86.0 Dehydration; E11.40 Type 2 diabetes mellitus with diabetic neuropathy, unspecified; I10 Essential (primary) hypertension; D64.9 Anemia, unspecified; Z79.84 Long term (current) use of oral hypoglycemic drugs; Z79.82 Long term (current) use of aspirin; Z79.899 Other long term (current) drug therapy; Z88.8 Allergy status to other drugs, medicaments and biological substances
CPT/HCPCS: 36415; 36430; 51702; 51798; 73620; 76770; 80048; 80053; 81001; 82728; 82947; 83540; 83550; 83605; 83735; 84100; 85014; 85018; 85025; 85045; 86850; 86900; 86901; 86923; 87040; 87086; 93005; 93010; 96361; 96365; 96366; 96367; 96375; 96376; 99285-25; A9270; G0378; J0696; J2470; J3475; J7030; J7050; J7120; P9016; P9047

== ENCOUNTER 2024-11-07 06:25 | Day surgery (SDC) | payer MEDICARE ==
[~2024-11-07 06:25] MED LIST changes: +ACET500 PO; +ASCO500 PO; +Amitriptyline H25 MG PO; +B-1100 M1 PO; +METO50 PO; +MIRT15ST PO; +PRAV20 PO; +VITAMIN D31000 UNI1
[2024-11-07] MEDS ORDERED: Lidocaine HCl 4% Cream 5 GM ONE (10:49)
== END 2024-11-07 23:00 | disposition home or self-care (01) ==
LOC: WOUND 06:25
DX: E11.621 Type 2 diabetes mellitus with foot ulcer (principal); L97.422 Non-pressure chronic ulcer of left heel and midfoot with fat layer exposed; E11.51 Type 2 diabetes mellitus with diabetic peripheral angiopathy without gangrene; L03.90 Cellulitis, unspecified
CPT/HCPCS: A6213; A9270

== ENCOUNTER 2024-11-14 01:21 | Day surgery (SDC) | payer MEDICARE ==
[2024-11-14] MEDS ORDERED: Lidocaine HCl 4% Cream 5 GM ONE (11:04)
== END 2024-11-14 23:00 | disposition home or self-care (01) ==
LOC: WOUND 01:21
DX: E11.621 Type 2 diabetes mellitus with foot ulcer (principal); L97.422 Non-pressure chronic ulcer of left heel and midfoot with fat layer exposed; E11.51 Type 2 diabetes mellitus with diabetic peripheral angiopathy without gangrene; G25.81 Restless legs syndrome
CPT/HCPCS: A6213; A9270

== ENCOUNTER 2024-11-28 01:02 | Day surgery (SDC) | payer MEDICARE ==
[~2024-11-28 01:02] MED LIST changes: +Acetaminophen650 M1 PO; +METO5A PO; +MULVITA PO; -VITAMIN D31000 UNI1; +VITAMIN D31000 UNI1 PO
[2024-11-28] MEDS ORDERED: Lidocaine HCl 4% Cream 5 GM ONE (10:20)
== END 2024-11-28 23:00 | disposition home or self-care (01) ==
LOC: WOUND 01:02
DX: E11.621 Type 2 diabetes mellitus with foot ulcer (principal); L97.422 Non-pressure chronic ulcer of left heel and midfoot with fat layer exposed; L89.152 Pressure ulcer of sacral region, stage 2; E11.51 Type 2 diabetes mellitus with diabetic peripheral angiopathy without gangrene; L03.90 Cellulitis, unspecified
CPT/HCPCS: A6213; A9270

== ENCOUNTER 2024-12-05 01:25 | Day surgery (SDC) | payer MEDICARE | END 2024-12-05 23:00 | disposition home or self-care (01) | LOC: WOUND 01:25 | DX: E11.621 Type 2 diabetes mellitus with foot ulcer (principal); L97.422 Non-pressure chronic ulcer of left heel and midfoot with fat layer exposed; L89.152 Pressure ulcer of sacral region, stage 2; E11.51 Type 2 diabetes mellitus with diabetic peripheral angiopathy without gangrene; G25.81 Restless legs syndrome; Z89.511 Acquired absence of right leg below knee | CPT/HCPCS: A6213 ==

== ENCOUNTER 2024-12-12 02:26 | Day surgery (SDC) | payer MEDICARE ==
[2024-12-12] MEDS ORDERED: Lidocaine HCl 4% Cream 5 GM ONE (10:18)
== END 2024-12-12 23:00 | disposition home or self-care (01) ==
LOC: WOUND 02:26
DX: E11.621 Type 2 diabetes mellitus with foot ulcer (principal); L97.422 Non-pressure chronic ulcer of left heel and midfoot with fat layer exposed; L89.152 Pressure ulcer of sacral region, stage 2; E11.622 Type 2 diabetes mellitus with other skin ulcer; L03.90 Cellulitis, unspecified; E11.51 Type 2 diabetes mellitus with diabetic peripheral angiopathy without gangrene
CPT/HCPCS: A6213; A9270

== ENCOUNTER 2024-12-19 01:45 | Day surgery (SDC) | payer MEDICARE ==
[2024-12-19] MEDS ORDERED: Lidocaine HCl 4% Cream 5 GM ONE (10:40)
== END 2024-12-19 23:21 | disposition home or self-care (01) ==
LOC: WOUND 01:45
DX: E11.621 Type 2 diabetes mellitus with foot ulcer (principal); L97.422 Non-pressure chronic ulcer of left heel and midfoot with fat layer exposed; L89.152 Pressure ulcer of sacral region, stage 2; E11.51 Type 2 diabetes mellitus with diabetic peripheral angiopathy without gangrene; G25.81 Restless legs syndrome
CPT/HCPCS: A6213; A9270

== ENCOUNTER 2024-12-26 02:25 | Day surgery (SDC) | payer MEDICARE ==
[2024-12-26] MEDS ORDERED: Lidocaine HCl 4% Cream 5 GM ONE (10:46)
== END 2024-12-26 22:50 | disposition home or self-care (01) ==
LOC: WOUND 02:25
DX: E11.621 Type 2 diabetes mellitus with foot ulcer (principal); L97.422 Non-pressure chronic ulcer of left heel and midfoot with fat layer exposed; L89.152 Pressure ulcer of sacral region, stage 2; E11.622 Type 2 diabetes mellitus with other skin ulcer; L03.90 Cellulitis, unspecified; E11.51 Type 2 diabetes mellitus with diabetic peripheral angiopathy without gangrene
CPT/HCPCS: A6213; A9270

== ENCOUNTER 2025-01-02 00:54 | Day surgery (SDC) | payer MEDICARE ==
[2025-01-02] MEDS ORDERED: Lidocaine HCl 4% Cream 5 GM ONE (10:28)
== END 2025-01-02 23:00 | disposition home or self-care (01) ==
LOC: WOUND 00:54
DX: E11.621 Type 2 diabetes mellitus with foot ulcer (principal); L97.422 Non-pressure chronic ulcer of left heel and midfoot with fat layer exposed; L89.152 Pressure ulcer of sacral region, stage 2; E11.622 Type 2 diabetes mellitus with other skin ulcer; L03.90 Cellulitis, unspecified; E11.51 Type 2 diabetes mellitus with diabetic peripheral angiopathy without gangrene
CPT/HCPCS: A6213; A9270

== ENCOUNTER 2025-01-09 01:14 | Day surgery (SDC) | payer MEDICARE ==
[2025-01-09] MEDS ORDERED: Lidocaine HCl 4% Cream 5 GM ONE (10:15)
[2025-01-09] MEDS ORDERED: Silver Nitr/Potassium Nitrate 1 EA APPL ONE (10:58)
== END 2025-01-09 23:00 | disposition home or self-care (01) ==
LOC: WOUND 01:14
DX: E11.621 Type 2 diabetes mellitus with foot ulcer (principal); L97.422 Non-pressure chronic ulcer of left heel and midfoot with fat layer exposed; L97.522 Non-pressure chronic ulcer of other part of left foot with fat layer exposed; L89.152 Pressure ulcer of sacral region, stage 2; E11.51 Type 2 diabetes mellitus with diabetic peripheral angiopathy without gangrene
CPT/HCPCS: A6213; A9270

== ENCOUNTER 2025-01-16 01:43 | Day surgery (SDC) | payer MEDICARE ==
[2025-01-16] MEDS ORDERED: Lidocaine HCl 4% Cream 5 GM ONE (10:19)
== END 2025-01-16 23:00 | disposition home or self-care (01) ==
LOC: WOUND 01:43
DX: E11.621 Type 2 diabetes mellitus with foot ulcer (principal); L97.522 Non-pressure chronic ulcer of other part of left foot with fat layer exposed; L89.152 Pressure ulcer of sacral region, stage 2; E11.622 Type 2 diabetes mellitus with other skin ulcer; E11.51 Type 2 diabetes mellitus with diabetic peripheral angiopathy without gangrene; L03.90 Cellulitis, unspecified
CPT/HCPCS: A6196; A6213; A9270

== ENCOUNTER → 2025-01-23 | Day surgery (SDC) | payer MEDICARE ==
[~2025-01-23] MED LIST changes: +Lidocaine HCl 4% Cream 5 GM ONE
== END ==
LOC: WOUND 12:22
DX: E11.621 Type 2 diabetes mellitus with foot ulcer (principal); L97.422 Non-pressure chronic ulcer of left heel and midfoot with fat layer exposed; L89.152 Pressure ulcer of sacral region, stage 2; L97.524 Non-pressure chronic ulcer of other part of left foot with necrosis of bone; L03.90 Cellulitis, unspecified; E11.51 Type 2 diabetes mellitus with diabetic peripheral angiopathy without gangrene
CPT/HCPCS: A6196; A6213; A9270

== ENCOUNTER 2025-01-27 13:34 | Inpatient (IN) | payer MEDICARE ==
[~2025-01-27] VITALS: Ht 172.7 cm; Wt 60.0 kg
[~2025-01-27 13:34] MED LIST changes: -Lidocaine HCl 4% Cream 5 GM ONE
[2025-01-27 14:28] LABS: BASOPHILS ABSOLUTE AUTO 0.06 K/mm3 (0.00-0.23); BASOPHILS PERCENT AUTO 0 % (0-2); EOSINOPHILS ABSOLUTE AUTO 0.25 K/mm3 (0.00-0.68); EOSINOPHILS PERCENT AUTO 2 % (0-6); Hematocrit 27.6 % (33.0-51.0); Hemoglobin 8.7 g/dL (11.5-16.0); IMMATURE GRAN ABSOLUTE AUTO 0.07 K/mm3 (0.00-0.10); IMMATURE GRAN PERCENT AUTO 0 % (0-1); LYMPHOCYTES ABSOLUTE AUTO 2.26 K/mm3 (0.84-5.20); LYMPHOCYTES PERCENT AUTO 14 % (21-46); MONOCYTES ABSOLUTE AUTO 0.99 K/mm3 (0.16-1.47); MONOCYTES PERCENT AUTO 6 % (4-13); Mean Corpuscular HGB 28.2 pg (26.0-34.0); Mean Corpuscular HGB Conc 31.5 g/dL (31.5-36.5); Mean Corpuscular Volume 89 fL (80-100); Mean Platelet Volume 8.1 fL (9.1-12.4); NEUTROPHILS ABSOLUTE AUTO 12.89 K/mm3 (1.96-9.15); NEUTROPHILS PERCENT AUTO 78 % (41-73); Platelet Count 540 K/mm3 (150-400); RDW Coefficient Variation 14.9 % (11.7-14.2); RDW Standard Deviation 48.4 fL (35.1-46.3); Red Blood Cell Count 3.09 M/mm3 (3.80-5.20); White Blood Cell Count 16.52 K/mm3 (4.00-11.30)
[2025-01-27 14:41] LABS: Albumin, Blood 2.5 g/dL (3.4-5.0); Albumin/Globulin Ratio 0.5 (0.8-1.8); Bilirubin, Total 0.1 mg/dL (0.1-1.0); Bun/Creatinine Ratio 71.3 (12.0-20.0); Calcium, Blood 9.1 mg/dL (8.5-10.1); Creatinine, Blood 0.84 mg/dL (0.40-1.00); Globulin, Blood 5.2 g/dL (2.2-4.0); Potassium, Blood 4.6 mmol/L (3.5-5.5); Total Protein, Blood 7.7 g/dL (6.4-8.2)
[2025-01-27] MEDS ORDERED: Piperacillin/Tazobactam Sod 3.375 GM in NS 100 ML IV ONE (20:25)
[2025-01-27] MEDS ORDERED: Vancomycin HCL 750 MG in NS 250 ML IV ONE (20:50)
[2025-01-27] MEDS ORDERED: Ondansetron HCl 2 MG / ML 2ML Vial IV PRN (22:40)
[2025-01-27] MEDS ORDERED: Acetaminophen 325 MG TABLET PO PRN (22:40)
[2025-01-27] MEDS ORDERED: OxyCODONE HCL 5 MG TAB PO PRN (22:40)
[2025-01-27] MEDS ORDERED: NS 1,000 ML IV SCH (23:00)
[2025-01-27] MEDS ORDERED: Mirtazapine 15 MG SoluTab PO SCH (23:26)
[2025-01-27] MEDS ORDERED: NS 250 ML IV PRN (23:30)
[2025-01-27 23:39] VITALS: BP 116/60
[2025-01-28] VITALS (11 sets, daily range): BP systolic 96–144; BP diastolic 49–75
[2025-01-28] MEDS ORDERED: Piperacillin/Tazobactam Sod 3.375 GM in NS 100 ML IV SCH
[2025-01-28] MEDS ORDERED: Insulin Regular 100 UNIT/ML 10ML Vial SC SCH
--- NOTE | 2025-01-28 02:04 | NUR ---
PATIENT IS A NEW ADMIT FROM THE ED. ALERT ORIENTED AND THREE PERSON TRANSFER FROM [facility] TO BED. RIGHT BKA, [place], AND BEDREST. CONSENT TO PHOTOGRAPH SIGNED AND IN CHART. PHOTO TAKEN OF LEFT 5TH TOE. DENIES CHEST PAIN, SOB, AND N/V. ON ROOM AIR. NPO WITH PODIATRY CONSULT CALLED IN BY ER. NS STARTED @ 75 mL/HR AND IV ABX INFUSED. REPORTED KYLE X ONE AND TYLENOL GIVEN PER EMAR. REPORTED TIRED AND IRRITABLE. CBG 167. REPORTS LIVES WITH , DAUGHTER, AND DOG IN HOUSE IN [place]. ORIENTED TO ROOM AND CALL LIGHT. DAUGHTER LEFT AFTER ADMIT. WCTM.
--- NOTE | 2025-01-28 02:44 | NUR ---
DR ESCAMILLA IN ROOM TO ASSESS PATIENT AND WOUND AFTER ADMIT. NO NEW CONCERNS FOR PATIENT AND DAUGHTER. WCTM.
[2025-01-28] MEDS ORDERED: Vancomycin HCL 750 MG in NS 250 ML IV SCH (05:00)
--- NOTE | 2025-01-28 06:24 | NUR ---
MRSA NARE SWAB COLLECTED AND SENT TO LAB.
[2025-01-28 07:02] LABS: BASOPHILS ABSOLUTE AUTO 0.05 K/mm3 (0.00-0.23); BASOPHILS PERCENT AUTO 0 % (0-2); EOSINOPHILS ABSOLUTE AUTO 0.25 K/mm3 (0.00-0.68); EOSINOPHILS PERCENT AUTO 2 % (0-6); Hematocrit 27.5 % (33.0-51.0); Hemoglobin 8.5 g/dL (11.5-16.0); IMMATURE GRAN ABSOLUTE AUTO 0.05 K/mm3 (0.00-0.10); IMMATURE GRAN PERCENT AUTO 0 % (0-1); LYMPHOCYTES ABSOLUTE AUTO 1.58 K/mm3 (0.84-5.20); LYMPHOCYTES PERCENT AUTO 12 % (21-46); MONOCYTES ABSOLUTE AUTO 0.98 K/mm3 (0.16-1.47); MONOCYTES PERCENT AUTO 7 % (4-13); Mean Corpuscular HGB 27.6 pg (26.0-34.0); Mean Corpuscular HGB Conc 30.9 g/dL (31.5-36.5); Mean Corpuscular Volume 89 fL (80-100); Mean Platelet Volume 8.1 fL (9.1-12.4); NEUTROPHILS ABSOLUTE AUTO 10.75 K/mm3 (1.96-9.15); NEUTROPHILS PERCENT AUTO 79 % (41-73); Platelet Count 523 K/mm3 (150-400); RDW Coefficient Variation 14.7 % (11.7-14.2); RDW Standard Deviation 47.3 fL (35.1-46.3); Red Blood Cell Count 3.08 M/mm3 (3.80-5.20); White Blood Cell Count 13.66 K/mm3 (4.00-11.30)
[2025-01-28 07:36] LABS: Albumin, Blood 2.5 g/dL (3.4-5.0); Albumin/Globulin Ratio 0.5 (0.8-1.8); Bilirubin, Total 0.2 mg/dL (0.1-1.0); Bun/Creatinine Ratio 59.1 (12.0-20.0); Creatinine, Blood 0.83 mg/dL (0.40-1.00); Globulin, Blood 5.3 g/dL (2.2-4.0); Magnesium, Blood 2.2 mg/dL (1.6-2.4); Potassium, Blood 4.1 mmol/L (3.5-5.5); Total Protein, Blood 7.8 g/dL (6.4-8.2)
[2025-01-28] MEDS ORDERED: Polyethylene Glycol 3350 17 gm PO PRN (08:40)
[2025-01-28] MEDS ORDERED: Cholecalciferol 1000 Unit Tablet (=25MCG) PO SCH (09:00)
[2025-01-28] MEDS ORDERED: Docusate Sodium 100 MG Cap PO SCH (09:00)
[2025-01-28] MEDS ORDERED: Ascorbic Acid 500 MG Tab PO SCH (09:00)
[2025-01-28] MEDS ORDERED: Lactobacil 2-S.Thermo-Bifido 1 1 Cap PO SCH (09:00)
[2025-01-28] MEDS ORDERED: Metoprolol Tartrate 50 MG Tab PO SCH (09:00)
[2025-01-28] MEDS ORDERED: Lisinopril 5 MG Tab PO SCH (09:00)
[2025-01-28] MEDS ORDERED: Thiamine HCl 100 MG Tab PO SCH (09:00)
[2025-01-28] MEDS ORDERED: Lidocaine HCl 2% 10 ML SDA ONE (10:52)
[2025-01-28] MEDS ORDERED: Bupivacaine 0.5% Inj 10 ML Vial ONE (10:52)
[2025-01-28] MEDS ORDERED: propofoL 20 ML IV ONE (11:39)
[2025-01-28] MEDS ORDERED: FentaNYL Citrate 50 MCG/ML 2 ML Injection ONE (11:39)
[2025-01-28] MEDS ORDERED: Phenylephrine HCl 100 MCG/ML-NS 10MLSYR (1MG/10ML) ONE (11:46)
[2025-01-28] MEDS ORDERED: Morphine Sulfate 4 MG/1 ML Injection IV PRN (12:00)
[2025-01-28] MEDS ORDERED: Ondansetron HCl 2 MG / ML 2ML Vial IV PRN (12:00)
[2025-01-28] MEDS ORDERED: HYDROmorphone HCl/Pf 1MG SYR IV PRN (12:00)
[2025-01-28] MEDS ORDERED: FentaNYL Citrate 50 MCG/ML 2 ML Injection IV PRN ×2 (12:00)
[2025-01-28] MEDS ORDERED: Dexamethasone Sod Phos 10 MG/ML 1ML VIAL ONE (12:05)
[2025-01-28] MEDS ORDERED: Ondansetron HCl 2 MG / ML 2ML Vial ONE (12:05)
[2025-01-28] MEDS ORDERED: Ketorolac Tromethamine 30mg Vial ONE (12:06)
[2025-01-28] MEDS ORDERED: Lidocaine HCl 2% 20 ML MDV ONE (12:06)
[2025-01-28 16:58] LABS: Vancomycin, Random 13.4 ug/mL
[2025-01-28] MEDS ORDERED: Vancomycin HCL 1,000 MG in NS 250 ML IV SCH (18:00)
[2025-01-28] MEDS ORDERED: Docusate Sodium/Senna 1 Tab PO SCH (21:00)
[2025-01-29 00:34] VITALS: BP 110/52
[2025-01-29 04:15] VITALS: BP 122/54
[2025-01-29 04:51] LABS: Hematocrit 25.9 % (33.0-51.0); Hemoglobin 7.9 g/dL (11.5-16.0); Mean Corpuscular HGB 27.3 pg (26.0-34.0); Mean Corpuscular HGB Conc 30.5 g/dL (31.5-36.5); Mean Corpuscular Volume 90 fL (80-100); Mean Platelet Volume 8.1 fL (9.1-12.4); Platelet Count 521 K/mm3 (150-400); RDW Coefficient Variation 14.6 % (11.7-14.2); RDW Standard Deviation 47.6 fL (35.1-46.3); Red Blood Cell Count 2.89 M/mm3 (3.80-5.20); White Blood Cell Count 16.07 K/mm3 (4.00-11.30)
[2025-01-29 05:37] LABS: Ferritin, Serum 767 ng/mL (8-252); Iron Serum 24 ug/dL (50-170); Magnesium, Blood 2.2 mg/dL (1.6-2.4); Percent Saturation 13.5 % (15.0-50.0); Total Iron Binding Capacity 178 ug/dL (250-450)
[2025-01-29 05:38] LABS: Albumin, Blood 2.1 g/dL (3.4-5.0); Anion Gap 11 mmol/L (3-11); Blood Urea Nitrogen 43 mg/dL (8-24); CO2, Blood 19 mmol/L (21-32); Calcium, Blood 8.1 mg/dL (8.5-10.1); Chloride, Blood 111 mmol/L (98-108); Glomerular Filtration Rate 78 (60-); Glucose, Blood 216 mg/dL (70-99); Phosphorus, Blood 3.5 mg/dL (2.5-4.9); Potassium, Blood 4.1 mmol/L (3.5-5.5); Sodium, Blood 137 mmol/L (136-145)
[2025-01-29 07:43] VITALS: BP 137/53
[2025-01-29 10:45] VITALS: BP 131/67
[2025-01-29] MEDS ORDERED: Insulin Human Lispro 100 Units/ML 3ML Syringe SC SCH (11:30)
[2025-01-29 18:16] LABS: Vancomycin, Trough 22.4 ug/mL (5.0-10.0)
[2025-01-29] MEDS ORDERED: Vancomycin HCL 750 MG in NS 250 ML IV SCH (18:30)
[2025-01-29 19:24] VITALS: BP 156/70
--- NOTE | 2025-01-29 19:46 | NUR ---
ATTENTION CARE MANAGEMENT- SPOKE TO DR CEBALLOS THIS EVENING ABOUT THE PLAN FOR THE PT AT DISCHARGE. PER DR CEBALLOS THE PT WILL NEED TO GO HOME WITH A WOUND VAC AND HOME HEALTH SERVICE TO CHANGE THE DRESSING 2 X'S A WEEK. PT WILL LIKELY BE ABLE TO GO HOME ON PO ANTIBIOTICS. PT IS TO FOLLOW UP WITH HIM IN HIS OFFICE LATER THIS WEEK.
--- NOTE | 2025-01-29 19:51 | NUR ---
SHIFT SUMARY- PT HAS HAD NO ACUTE CHANGE T/O THE DAY. SHE HAS RECIEVED ALL ABX Tx SCHEDULED. SHE HAS A PUREWICK IN PLACE BUT IT DOES NOT TEND TO WORK, IT OFTEN LEAKS AND RESULTS IN A CHANGE. PT CULTURE CAME BACK POSSITIVE FOR MRSA. PT PLACED IN ISOLATION FOR MRSA IN THE WOUND. PT HAS DENIED PAIN T/O THE SHIFT. CBG CHECKS CHANGED TO AC/HS THE PT HAS A DIET ORDER NOW. WELL INSULIN COVERAGE CHAGED TO HUMALOG. PT HAS GOOD CAP REFILL ON THE REMAINING TOES, ALTHOUGH IT IS DIFFICULT TO TELL THE BETADINE COLORS THE SKIN AND SHE IS PALE. REPORT COMPLETED WITH NIGHT RN PT IN BED, CALL LIGHT IN REACH NO S&S OF DISTRESS NOTED
--- NOTE | 2025-01-30 04:05 | NUR ---
SHIFT SUMMARY PATIENT HAD NO ACUTE CHANGES. ALERT ORIENTED AND BEDREST WITH RIGHT BKA AND NEW LEFT 5TH TOE AMPUTATED. USES BEDPAN AND PUREWICK IN PLACE. DENIES CHEST PAIN AND SOB. REPORTED NAUSEA X ONE AND IV ZOFRAN GIVEN WITH GOOD EFFECT. CBG 186. PIV INTACT. IV ABXS INFUSED. CALL LIGHT IN REACH. BED IN LOWEST POSITION. WILL CONTINUE TO MONITOR UNTIL DAY SHIFT NURSE ASSUMES CARE.
[2025-01-30 04:12] VITALS: BP 184/84
[2025-01-30 07:14] VITALS: BP 169/75
[2025-01-30 16:02] VITALS: BP 127/55
--- NOTE | 2025-01-30 18:22 | NUR ---
SHIFT SUMMARY PT A&OX4, VSS, TOLERATED MINIMAL PO DUE TO NAUSEA THAT WAS MEDICATED PER EMAR, AND DENIED PAIN. WOUND VAC IN PLACE. PLAN FOR D/C TOMORROW. NO OTHER ACUTE CHANGES. CALL LIGHT WITHIN REACH AND PT ABLE TO MAKE NEEDS KNOWN.
[2025-01-30 19:26] VITALS: BP 128/58
[2025-01-31 04:09] VITALS: BP 141/63
[2025-01-31 05:15] LABS: Hematocrit 27.9 % (33.0-51.0); Hemoglobin 8.4 g/dL (11.5-16.0); Mean Corpuscular HGB 27.2 pg (26.0-34.0); Mean Corpuscular HGB Conc 30.1 g/dL (31.5-36.5); Mean Corpuscular Volume 90 fL (80-100); Platelet Count 552 K/mm3 (150-400); RDW Coefficient Variation 14.5 % (11.7-14.2); RDW Standard Deviation 47.8 fL (35.1-46.3); Red Blood Cell Count 3.09 M/mm3 (3.80-5.20); White Blood Cell Count 14.23 K/mm3 (4.00-11.30)
[2025-01-31 05:41] LABS: Albumin, Blood 2.1 g/dL (3.4-5.0); Anion Gap 8 mmol/L (3-11); Blood Urea Nitrogen 17 mg/dL (8-24); Bun/Creatinine Ratio 22.2 (12.0-20.0); CO2, Blood 22 mmol/L (21-32); Chloride, Blood 113 mmol/L (98-108); Creatinine, Blood 0.77 mg/dL (0.40-1.00); Glomerular Filtration Rate 81 (60-); Glucose, Blood 145 mg/dL (70-99); Phosphorus, Blood 2.4 mg/dL (2.5-4.9); Potassium, Blood 4.1 mmol/L (3.5-5.5); Sodium, Blood 139 mmol/L (136-145); Vancomycin, Trough 23.2 ug/mL (5.0-10.0)
--- NOTE | 2025-01-31 05:46 | NUR ---
SUMMARY: PT A/OX4, CALLS APPRROPRIATELY TO SPECIFY NEEDS AND IS COOPERATIVE W/CARE. WOUND VAC IS IN PLACE TO L.FOOT S/P L.5TH TOE AMPUTATION AND HAS A SORE TO HER L.OUTER FOOT COVERED BY DX. SHE ALSO HAS HX OF R.BKA AND IS W/C BOUND AT BASELINE. PT REPOSITIONS SELF IN BED BUT SEEMINGLY LACKS MOTIVATION. SHE'S INCONTINENT OF BOWEL/BLADDER W/ATTENDS CHANGED PRN. BOWEL MEDS HELD FOR CONT'D LOOSE STOOL. IV ABX RECEIVED PER EMAR. NO ACUTE CHANGES, VSS AND AFEBRILE. POSSIBLE D/C HOME W/HOME HEALTH TODAY. WILL MONITOR AND REPORT TO DAY RN.
[2025-01-31 07:26] VITALS: BP 116/56
[2025-01-31 09:31] VITALS: BP 115/65
[2025-01-31] MEDS ORDERED: VISBIOME 112.51 EACH PO (13:10)
[2025-01-31] MEDS ORDERED: SULTRIDS PO (13:10)
--- NOTE | 2025-01-31 16:59 | NUR ---
DISCHARGE NOTE PT D/C HOME AT 1658. PT PROVIDED W/ VERBAL AND WRITTEN INSTRUCTIONS BY STUDENT NURSE ED Bower/ SUPERVISION OF THIS RN. PT A&OX4, VSS, W/C AT BASE, TOLERATING PO, VOIDING, AND DENIED PAIN. WOUND VAC CHANGED BY ZOË SAMANIEGO PRIOR TO D/C. PT PROVIDED W/ WOUND VAC SUPPLIES AND BELONGINGS WERE RETURNED. PT ESCOURTED OUT VIA W/C BY VICENTE CASTANO.
[2025-01-31] MEDS ORDERED: Vancomycin HCL 1,000 MG in NS 250 ML IV SCH (22:00)
== END 2025-01-31 16:58 | disposition home health service (06) | DRG 854 ==
LOC: ER 13:34 → MEDS 15:49
PROVIDERS: Internal Medicine; Podiatrist Foot & Ankle Surgery; Student in an Organized Health Care Education/Training Program; ADMIT Student in an Organized Health Care Education/Training Program
PROC: 3E03329 Introduction of Other Anti-infective into Peripheral Vein, Percutaneous Approach (ICD-10-PCS; 2025-01-27)
PROC: 0Y6N0ZF Detachment at Left Foot, Partial 5th Ray, Open Approach (ICD-10-PCS; principal; 2025-01-28 10:00)
DX: A41.02 Sepsis due to Methicillin resistant Staphylococcus aureus (principal); E11.52 Type 2 diabetes mellitus with diabetic peripheral angiopathy with gangrene; M86.9 Osteomyelitis, unspecified; I70.262 Atherosclerosis of native arteries of extremities with gangrene, left leg; E11.69 Type 2 diabetes mellitus with other specified complication; I10 Essential (primary) hypertension; L89.152 Pressure ulcer of sacral region, stage 2; E11.621 Type 2 diabetes mellitus with foot ulcer; L97.529 Non-pressure chronic ulcer of other part of left foot with unspecified severity; D64.9 Anemia, unspecified; D75.839 Thrombocytosis, unspecified; L89.622 Pressure ulcer of left heel, stage 2; Z89.511 Acquired absence of right leg below knee; Z99.3 Dependence on wheelchair; Z88.8 Allergy status to other drugs, medicaments and biological substances; Z79.82 Long term (current) use of aspirin
CPT/HCPCS: 36415; 80053; 80069; 80202; 82607; 82728; 82746; 82947; 83540; 83550; 83605; 83735; 85025; 85027; 87071; 87075; 87077; 87147; 87186; 87205; 93926; 96365; 96367; 97162; 97530; 99284-25; A9270; J1100; J1815; J1885; J2003; J2371; J2405; J2543; J2704; J3010; J3370; J7030; J7050

== ENCOUNTER 2025-02-17 11:58 | Inpatient (IN) | payer MEDICARE ==
[~2025-02-17] VITALS: Ht 172.7 cm; Wt 59.2 kg
[~2025-02-17 11:58] MED LIST changes: +SULTRIDS PO
[2025-02-17 14:11] LABS: Hematocrit 28.3 % (33.0-51.0); Hemoglobin 9.2 g/dL (11.5-16.0); Mean Corpuscular HGB 28.5 pg (26.0-34.0); Mean Corpuscular HGB Conc 32.5 g/dL (31.5-36.5); Mean Corpuscular Volume 88 fL (80-100); RDW Coefficient Variation 15.2 % (11.7-14.2); RDW Standard Deviation 49.1 fL (35.1-46.3); Red Blood Cell Count 3.23 M/mm3 (3.80-5.20); White Blood Cell Count 10.33 K/mm3 (4.00-11.30)
[2025-02-17 14:14] LABS: Albumin, Blood 3.1 g/dL (3.4-5.0); Albumin/Globulin Ratio 0.6 (0.8-1.8); Bilirubin, Total 0.2 mg/dL (0.1-1.0); Bun/Creatinine Ratio 45.7 (12.0-20.0); Calcium, Blood 9.4 mg/dL (8.5-10.1); Creatinine, Blood 0.85 mg/dL (0.40-1.00); Globulin, Blood 5.6 g/dL (2.2-4.0); Potassium, Blood 4.9 mmol/L (3.5-5.5); Total Protein, Blood 8.7 g/dL (6.4-8.2)
[2025-02-17 14:40] LABS: BASOPHILS PERCENT MAN 2 % (0-2); EOSINOPHILS PERCENT MAN 3 % (0-6); LYMPHOCYTES ABSOLUTE MAN 1.85 K/mm3 (0.84-5.20); LYMPHOCYTES PERCENT MAN 18 % (21-46); MONOCYTES PERCENT MAN 3 % (4-13); NEUTROPHILS ABSOLUTE MAN 7.64 K/mm3 (1.96-9.15); SEG NEUTROPHILS PERCENT MAN 74 % (41-73); TOTAL CELLS COUNTED 100
[2025-02-17 15:30] LABS: Mean Platelet Volume 8.6 fL (9.1-12.4); Platelet Count 499 K/mm3 (150-400)
[2025-02-17] MEDS ORDERED: Magnesium Hydroxide Conc 10 ML UDC PO PRN (16:00)
[2025-02-17] MEDS ORDERED: Vancomycin HCL 1,500 MG in NS 250 ML IV ONE (16:05)
[2025-02-17] MEDS ORDERED: Insulin Human Lispro 100 Units/ML 3ML Syringe SC SCH (16:30)
[2025-02-17] MEDS ORDERED: Heparin Sodium 1000 Units/ML 10ML MDV ONE (18:06)
[2025-02-17] MEDS ORDERED: NS 500 ML IV ONE (18:06)
[2025-02-17] MEDS ORDERED: NS 1,000 ML IV ONE ×2 (18:06→18:12)
[2025-02-17] MEDS ORDERED: Nitroglycerin 2 MG/20 ML BTL ONE (18:07)
[2025-02-17] MEDS ORDERED: FentaNYL Citrate 50 MCG/ML 2 ML Injection ONE (18:42)
[2025-02-17] MEDS ORDERED: Midazolam HCl 1MG / ML 2ML Vial ONE (18:42)
[2025-02-17 19:39] VITALS: BP 146/56
--- NOTE | 2025-02-17 20:07 | NUR ---
DAUGHTER: SONALI: [phone]
[2025-02-17 23:18] VITALS: BP 128/60
[2025-02-18] MEDS ORDERED: Vancomycin HCL 750 MG in NS 250 ML IV SCH (04:00)
[2025-02-18 04:05] LABS: Hematocrit 28.4 % (33.0-51.0); Hemoglobin 8.8 g/dL (11.5-16.0); Mean Corpuscular HGB 27.8 pg (26.0-34.0); Mean Corpuscular Volume 90 fL (80-100); Mean Platelet Volume 8.5 fL (9.1-12.4); Platelet Count 362 K/mm3 (150-400); RDW Coefficient Variation 15.3 % (11.7-14.2); RDW Standard Deviation 50.3 fL (35.1-46.3); Red Blood Cell Count 3.17 M/mm3 (3.80-5.20); White Blood Cell Count 9.23 K/mm3 (4.00-11.30)
[2025-02-18 04:17] VITALS: BP 137/54
[2025-02-18 04:23] LABS: Bun/Creatinine Ratio 42.9 (12.0-20.0); Calcium, Blood 8.7 mg/dL (8.5-10.1); Creatinine, Blood 0.7 mg/dL (0.40-1.00)
[2025-02-18 07:20] VITALS: BP 146/63
[2025-02-18] MEDS ORDERED: Acetaminophen 325 MG TABLET PO PRN (08:15)
[2025-02-18] MEDS ORDERED: Metoclopramide HCl 10 MG Tab PO PRN (08:15)
[2025-02-18] MEDS ORDERED: Mirtazapine 15 MG SoluTab PO PRN (08:20)
[2025-02-18] MEDS ORDERED: Aspirin 81 MG TabEC PO SCH (09:00)
[2025-02-18] MEDS ORDERED: Thiamine HCl 100 MG Tab PO SCH (09:00)
[2025-02-18] MEDS ORDERED: Metoprolol Tartrate 50 MG Tab PO SCH (09:00)
[2025-02-18] MEDS ORDERED: Ascorbic Acid 500 MG Tab PO SCH (09:00)
[2025-02-18] MEDS ORDERED: Multivitamins 1 Tab PO SCH (09:00)
[2025-02-18] MEDS ORDERED: Enoxaparin 40 MG/0.4 ML SYR SC SCH (09:00)
[2025-02-18 11:41] VITALS: BP 151/64
[2025-02-18 15:37] VITALS: BP 135/63
[2025-02-18 15:48] LABS: Vancomycin, Random 16.3 ug/mL
--- NOTE | 2025-02-18 17:12 | NUR ---
SHIFT SUMMARY: PT A&OX4. FOLLOWS COMMANDS AND MAKES NEEDS KNOWN TO STAFF. PT WAS ABLE TO GET UP TO THE BSC IND DURING SHIFT AND WAS ABLE TO TOLERATE WEIGHT ON L FOOT. DO CEBALLOS CAME AND DRESSED PTS WOUND ON L FOOT AND PLANS FOR A WOUND WASHOUT Thursday. PT WILL BE NPO AFTER MIDNIGHT ON 02/19. PT REMAINS FREE OF ANT CP, PRESSURE, TIGHTNESS OR SOB DURING SHIFT. VSS. PT REPORTED FANTOM PAIN IN THE R LEG THIS AM THAT RESOLVED BY THIS AFTERNOON. NO SIGNIFICANT EVENTS HAPPENED DURING THIS SHIFT. WILL CONTINUE TO CARE FOR PT TILL END OF SHIFT.
[2025-02-18 19:44] VITALS: BP 127/56
[2025-02-18] MEDS ORDERED: Cholecalciferol 1000 Unit Tablet (=25MCG) PO SCH (21:00)
[2025-02-18 23:10] VITALS: BP 134/60
[2025-02-19 03:51] VITALS: BP 126/61
--- NOTE | 2025-02-19 05:33 | NUR ---
SHIFT SUMMARY PT A&OX4. FOLLOWS COMMANDS AND ABLE TO MAKE NEEDS KNOWN. BP STABLE. ON TELE, SR 70S. SPO2>95% ON RA. S/P LLE REVASC, WOUNDS ON L FOOT REDRESSED DURING DAY SHIFT WITH PLAN FOR A WOUND WASHOUT THURSDAY AM. ABLE TO TRANSFER TO [facility]. TOLERATING WEIGHT ON THE LLE. NO SIGNIFICANT EVENTS OCCURRED DURING SHIFT. WILL REPORT TO ONCOMING NURSE.
[2025-02-19 07:51] VITALS: BP 128/65
[2025-02-19 11:57] VITALS: BP 128/62
[2025-02-19 15:30] LABS: Vancomycin, Trough 16.9 ug/mL (5.0-10.0)
[2025-02-19 17:12] VITALS: BP 132/56
--- NOTE | 2025-02-19 18:44 | NUR ---
SHIFT SUMMARY: PT A&OX4. FOLLOWS COMMANDS AND FOLLOWS COMMANDS. PT VERY IRRITABLE THROUGHOUT SHIFT AND KICKED HER DAUGHTER OUT OF HER ROOM THIS AM DUE TO A DISAGREEMENT. DAUGHTER WANTED THIS RN "TO MAKE NOTE IN HER CHART THAT SHE IS OFFICIALLY GETTING KICKED OUT OF HER ROOM". PT GOT UP TO THE BSC DURING SHIFT INDEPENDENTLY. REMAINED FREE OF ANY CP, PRESSURE, TIGHTNESS OR SOB. DENIES ANY OTHER COMPLAINTS. PT WILL BE NPO AFTER MIDNIGHT FOR WOUND WASHOUT TOMORROW WITH DR CEBALLOS. NO OTHER SIGNIFICANT EVENTS HAPPENED DURING THIS SHIFT. WILL CONTINUE TO CARE FOR PT TILL END OF SHIFT.
[2025-02-19 19:37] VITALS: BP 132/67
[2025-02-19 23:28] VITALS: BP 113/58
[2025-02-20] VITALS (14 sets, daily range): BP systolic 95–141; BP diastolic 37–68
--- NOTE | 2025-02-20 | NUR ---
TRANSFER FROM PCU 16 TO SURGICAL FLOOR 224. PT ARRIVED TO FLOOR VIA HOSPITAL BED. PT VERBALIZES DISPLEASURE WITH CHANGING ROOMS DURING THE NIGHT. VSS. PT TO BE NPO FOR I&D PROCEDURE IN AM. ORIENTED TO ROOM AND CALL LIGHT.
[2025-02-20] MEDS ORDERED: NS 250 ML IV PRN (03:50)
[2025-02-20 05:42] LABS: Bun/Creatinine Ratio 29.3 (12.0-20.0); Creatinine, Blood 0.65 mg/dL (0.40-1.00); Potassium, Blood 3.9 mmol/L (3.5-5.5)
--- NOTE | 2025-02-20 06:00 | NUR ---
SHIFT SUMMARY NOC. PT A/O X4, PT NPO SINCE 0000, PT TO HAVE I&D PROCEDURE TODAY. PT IN ISOLATION FOR MRSA. CALL LIGHT IN REACH.
[2025-02-20] MEDS ORDERED: AMITRIPTYLINE H25 MG PO (06:34)
[2025-02-20] MEDS ORDERED: PRAVASTATIN SOD40 MG PO (06:34)
[2025-02-20] MEDS ORDERED: GLUCOPHAGE1000 M1 PO (06:35)
[2025-02-20] MEDS ORDERED: LISI5 PO (06:35)
[2025-02-20] MEDS ORDERED: PIOGLITAZONE HC15 MG PO (06:36)
[2025-02-20] MEDS ORDERED: Lidocaine HCL 1% 10 ML MDV ONE (15:39)
[2025-02-20] MEDS ORDERED: Bupivacaine 0.5% Inj 10 ML Vial ONE (15:39)
[2025-02-20] MEDS ORDERED: Lactated Ringer's 1,000 ML IV SCH (15:40)
--- NOTE | 2025-02-20 15:45 | NUR ---
History, Chart, Medications and Allergies reviewed before start of procedure. TRANSPORTED TO [facility] VIA GURNEY. Patient confirms NPO status and agrees with scheduled surgery. NECKLACE PLACED IN SPECIMAN CUP INPATIENTS ROOM.
--- NOTE | 2025-02-20 16:05 | NUR ---
REPORT GIVEN TO HERMAN MANDEL RN.
--- NOTE | 2025-02-20 16:33 | NUR ---
ELIECER SENT TO OR
[2025-02-20] MEDS ORDERED: FentaNYL Citrate 50 MCG/ML 2 ML Injection ONE (16:54)
[2025-02-20] MEDS ORDERED: propofoL 20 ML IV ONE (16:54)
[2025-02-20] MEDS ORDERED: Dexamethasone Sod Phos 10 MG/ML 1ML VIAL ONE (17:00)
[2025-02-20] MEDS ORDERED: Phenylephrine HCl 100 MCG/ML-NS 10MLSYR (1MG/10ML) ONE (17:07)
[2025-02-20] MEDS ORDERED: EpiNEPhrine 1 MG/1 ML 1ML Vial ONE (17:07)
[2025-02-20] MEDS ORDERED: Ondansetron HCl 2 MG / ML 2ML Vial IV PRN (17:15)
[2025-02-20] MEDS ORDERED: HYDROmorphone HCl/Pf 1MG SYR IV PRN (17:15)
[2025-02-20] MEDS ORDERED: FentaNYL Citrate 50 MCG/ML 2 ML Injection IV PRN (17:20)
[2025-02-20] MEDS ORDERED: Ondansetron HCl 2 MG / ML 2ML Vial ONE (17:28)
--- NOTE | 2025-02-20 18:15 | NUR ---
ARRIVAL TO SURGICAL UNIT PT ARRIVED TO UNIT VIA GURNEY. BULKY JOE WRAP DRESSING OVER INCISION, WNL. STATES PAIN IS MILD, WILL MEDICATE PER EMAR. LUNGS CLEAR, VSS, PPP. TELE IN PLACE. SNACKS AND DRINKS GIVEN.
[2025-02-21 00:06] VITALS: BP 147/60
[2025-02-21 04:20] VITALS: BP 122/62
[2025-02-21 06:28] LABS: Hematocrit 29.4 % (33.0-51.0); Mean Corpuscular HGB 27.4 pg (26.0-34.0); Mean Corpuscular HGB Conc 30.6 g/dL (31.5-36.5); Mean Corpuscular Volume 90 fL (80-100); Mean Platelet Volume 8.6 fL (9.1-12.4); Platelet Count 374 K/mm3 (150-400); RDW Coefficient Variation 14.1 % (11.7-14.2); RDW Standard Deviation 46.5 fL (35.1-46.3); Red Blood Cell Count 3.28 M/mm3 (3.80-5.20); White Blood Cell Count 6.44 K/mm3 (4.00-11.30)
--- NOTE | 2025-02-21 06:35 | NUR ---
SHIFT SUMMARY NO ACUTE EVENTS OVERNIGHT. PT WITH BULKY JOE WRAP TO LLE; BKA TO RIGHT. BEDPAN USED FOR VOIDS UNTIL WEIGHT BEARING STATUS UPDATED.
[2025-02-21 07:03] LABS: Bun/Creatinine Ratio 42.5 (12.0-20.0); Calcium, Blood 8.7 mg/dL (8.5-10.1); Creatinine, Blood 0.68 mg/dL (0.40-1.00); Potassium, Blood 4.4 mmol/L (3.5-5.5)
[2025-02-21 07:35] VITALS: BP 121/55
[2025-02-21] MEDS ORDERED: AMIT25 PO (10:42)
[2025-02-21] MEDS ORDERED: REMERON1510 PO (10:42)
[2025-02-21 11:41] VITALS: BP 110/50
[2025-02-21] MEDS ORDERED: Lisinopril 5 MG Tab PO SCH (14:00)
[2025-02-21] MEDS ORDERED: Pioglitazone HCl 15 MG Tab PO SCH (14:00)
[2025-02-21 14:13] VITALS: BP 148/59
[2025-02-21] MEDS ORDERED: MetFORMIN HCl 500 mg PO SCH (17:00)
[2025-02-21] MEDS ORDERED: Amitriptyline HCl 50 MG Tab PO SCH (18:00)
--- NOTE | 2025-02-21 19:01 | NUR ---
SHIFT SUMMARY PT IS TOLERATING REGULAR DIET WELL. VOIDING SUCCESSFULLY IND TO BEDSIDE COMMODE. STATES NO PAIN. JOE WRAP IN PLACE, WNL. CARE COORDINATION WORKING ON DC TO SNF. PLAN TO APPLY HOME WOUND VAC WHEN AVAILABLE.
[2025-02-21 19:40] VITALS: BP 116/54
[2025-02-21] MEDS ORDERED: Pravastatin Sodium 20 MG Tab PO SCH (21:00)
[2025-02-22] VITALS (7 sets, daily range): BP systolic 100–127; BP diastolic 46–58
--- NOTE | 2025-02-22 06:30 | NUR ---
SHIFT SUMMARY, PATIENT IS VERY LUMMI AND TENDS TO GET FRUSTRATED WHEN SHE CANT HEAR YOU. ON ISOLATION FOR MRSA. DRESSING LT FOOT DRESSING AND ACEWRAP C/D/I. PT IS INDEPENDENT TO BSC. HX RT BKA. REPOSITIONS SELF IN BED. RESTED WELL T/O NOC WHEN NOT DISTURBED. MEDS GIVEN ORDERED. PATIENT DENIES PAIN AND HAS NOT TAKEN ANY ON DAY SHIFT AND THIS NOC SHIFT. ALERT AND ORIENTED. WILL GIVE REPORT TO RN TAKING PATIENT.
[2025-02-22] MEDS ORDERED: Amitriptyline HCl 25 MG Tab PO SCH (09:00)
[2025-02-22] MEDS ORDERED: Zinc Sulfate 220 MG Cap (Provides 50MG) PO SCH (09:00)
[2025-02-22 17:44] LABS: Vancomycin, Trough 23.4 ug/mL (5.0-10.0)
--- NOTE | 2025-02-22 18:29 | NUR ---
SUMMARY: PT IS POD1 I&D OF L FOOT. A/O, VSS, NO ACUTE CHANGE IN TELE. PT RECEIVED ANTIBIOTICS TODAY, HAS DENIED PAIN. PT ABLE TO STAND/PIVOT TO COMMODE INDEPENDENTLY. SURGICAL SITE CDI. USES CALL LIGHT. PLAN IS DC TOMORROW TO SNF, POWERGLIDE PLACED TODAY FOR IV ANTIBIOTICS. NO CONCERNS.
[2025-02-22] MEDS ORDERED: Vancomycin HCL 1,000 MG in NS 250 ML IV SCH (23:00)
[2025-02-23 02:40] VITALS: BP 106/55
[2025-02-23 07:45] VITALS: BP 126/59
--- NOTE | 2025-02-23 07:54 | NUR ---
SHIFT SUMMARY NO ACUTE CHANGES T/O NOC. PATIENT RESTED WELL WHEN UNDISTURBED. SCHEDULED MEDS AND PRN MEDS GIVEN PER EMAR. DRSG LT FOOT WITH JOE WRAP C/D/I. INDEPENDENT TO BSC. VERY SELDOVIA AND GETS FRUSTRATED IF YOU ARE NOT CLOSE AMD LOOKING AT HER WHEN YOU TALK TO HER. POWER GLIDE WAS PLACED TODAY LT ARM, FLUSHED X2 WITH 30ML NS. REPORT GIVEN TO RN TAKING PT.
--- NOTE | 2025-02-23 11:59 | NUR ---
DISCHARGE SUMMARY PT POD 2 L FOOT I&D WITH METARSAL RESECTION. DRESSING C/D/I. PT LEFT WITH TRANSPORT VIA WHEELCHAIR. ALL BELONGINGS RETURNED TO PT VIA TO DISCHARGE. EDUCATION/DISCHARGE INSTRUCTIONS PROVIDED AND PT DEMONSTRATED UNDERSTANDING. POWERGLIDE DRESSING CHANGED BY JOSE ROBERTO LUCERO RN. ATTEMPTED TO CALL [facility] TO PROVIDE REPORT NO ANSWER.
== END 2025-02-23 11:54 | DRG 504 ==
LOC: ER 11:58 → SURS 11:59 → PCU 19:31 → SURS 02-18 16:35 → PCU 02-19 23:26 → SURS 02-19 23:28
PROVIDERS: Emergency Medicine; Podiatrist Foot & Ankle Surgery; ADMIT Internal Medicine
PROC: 02HV33Z Insertion of Infusion Device into Superior Vena Cava, Percutaneous Approach (ICD-10-PCS; principal; 2025-02-20 16:00)
PROC: 0QBP0ZZ Excision of Left Metatarsal, Open Approach (ICD-10-PCS; 2025-02-20 16:00)
DX: T87.44 Infection of amputation stump, left lower extremity (principal); K86.1 Other chronic pancreatitis; M86.9 Osteomyelitis, unspecified; E11.69 Type 2 diabetes mellitus with other specified complication; E11.621 Type 2 diabetes mellitus with foot ulcer; E11.51 Type 2 diabetes mellitus with diabetic peripheral angiopathy without gangrene; E11.40 Type 2 diabetes mellitus with diabetic neuropathy, unspecified; I10 Essential (primary) hypertension; L97.529 Non-pressure chronic ulcer of other part of left foot with unspecified severity; L89.891 Pressure ulcer of other site, stage 1; B95.2 Enterococcus as the cause of diseases classified elsewhere; B95.62 Methicillin resistant Staphylococcus aureus infection as the cause of diseases classified elsewhere; Z87.81 Personal history of (healed) traumatic fracture; Z89.511 Acquired absence of right leg below knee; Z88.8 Allergy status to other drugs, medicaments and biological substances; Z79.82 Long term (current) use of aspirin; Z79.899 Other long term (current) drug therapy; Z79.84 Long term (current) use of oral hypoglycemic drugs
CPT/HCPCS: 36415; 76937; 80048; 80053; 80202; 82947; 85025; 85027; 87070; 87071; 87075; 87077; 87186; 87205; 88305; 88311; 94760; 96365; 96372; 96374; 96376; 97161; 97530; 99152; 99153; 99284-25; A9270; C1725; C1760; C1769; C1887; C1894; C2623; G0378; J0171; J1100; J1644; J1650; J2003; J2250; J2371; J2405; J2704; J3010; J3370; J7030; J7050; J7120; Q9967

== ENCOUNTER 2025-05-24 09:25 | Inpatient (IN) | payer MEDICARE ==
[~2025-05-24] VITALS: Ht 162.6 cm; Wt 49.6 kg
[~2025-05-24 09:25] MED LIST changes: +AMIT25 PO; +AMITRIPTYLINE H25 MG PO; +GLUCOPHAGE1000 M1 PO; +PIOGLITAZONE HC15 MG PO; +PRAVASTATIN SOD40 MG PO; +REMERON1510 PO
[2025-05-24] MEDS ORDERED: Magnesium Sulfate 500 MG / ML 2ML Vial IV ONE (09:31)
[2025-05-24] MEDS ORDERED: Sodium Bicarb 8.4% 50 mEq Syringe IV ONE (09:31)
[2025-05-24] MEDS ORDERED: Phenylephrine HCl 100 MCG/ML-NS 10MLSYR (1MG/10ML) IV ONE (09:31)
[2025-05-24] MEDS ORDERED: Midazolam HCl 1MG / ML 2ML Vial IV ONE (09:31)
[2025-05-24] MEDS ORDERED: Ondansetron HCl 2 MG / ML 2ML Vial IV ONE (09:55)
[2025-05-24 10:02] LABS: BASOPHILS ABSOLUTE AUTO 0.04 K/mm3 (0.00-0.23); BASOPHILS PERCENT AUTO 0 % (0-2); EOSINOPHILS ABSOLUTE AUTO 0.01 K/mm3 (0.00-0.68); EOSINOPHILS PERCENT AUTO 0 % (0-6); Hematocrit 22.7 % (33.0-51.0); Hemoglobin 6.9 g/dL (11.5-16.0); IMMATURE GRAN ABSOLUTE AUTO 0.06 K/mm3 (0.00-0.10); IMMATURE GRAN PERCENT AUTO 0 % (0-1); LYMPHOCYTES ABSOLUTE AUTO 1.05 K/mm3 (0.84-5.20); LYMPHOCYTES PERCENT AUTO 6 % (21-46); MONOCYTES ABSOLUTE AUTO 1.66 K/mm3 (0.16-1.47); MONOCYTES PERCENT AUTO 9 % (4-13); Mean Corpuscular HGB Conc 30.4 g/dL (31.5-36.5); Mean Corpuscular Volume 84 fL (80-100); NEUTROPHILS ABSOLUTE AUTO 16.11 K/mm3 (1.96-9.15); NEUTROPHILS PERCENT AUTO 85 % (41-73); NRBC ABSOLUTE 0.00 K/mm3 (0.00-0.02); NRBC Auto 0.0 /100 WBC (0.0-0.2); Platelet Count 527 K/mm3 (150-400); RDW Coefficient Variation 17.2 % (11.7-14.2); RDW Standard Deviation 52.1 fL (35.1-46.3)
[2025-05-24 10:21] LABS: C-REACTIVE PROTEIN, EXT RANGE 17.7 mg/dL (0.000-0.300)
[2025-05-24 10:24] LABS: Alanine Aminotransfer (ALT/SGP 12.0 U/L (12-78); Albumin, Blood 2.3 g/dL (3.4-5.0); Albumin/Globulin Ratio 0.4 (0.8-1.8); Anion Gap 11.0 mmol/L (3-11); Aspartate Aminotrans (AST/SGOT 14.0 U/L (12-37); Bilirubin, Total 0.2 mg/dL (0.1-1.0); Blood Urea Nitrogen 35.0 mg/dL (8-24); CO2, Blood 17.0 mmol/L (21-32); Calcium, Blood 9.6 mg/dL (8.5-10.1); Chloride, Blood 101.0 mmol/L (98-108); Creatinine, Blood 1.31 mg/dL (0.40-1.00); Globulin, Blood 5.9 g/dL (2.2-4.0); Glucose, Blood 225.0 mg/dL (70-99); Potassium, Blood 4.9 mmol/L (3.5-5.5); Sodium, Blood 124.0 mmol/L (136-145); Total Protein, Blood 8.2 g/dL (6.4-8.2)
[2025-05-24] MEDS ORDERED: Piperacillin/Tazobactam Sod 3.375 GM in NS 100 ML IV ONE (10:45)
[2025-05-24] MEDS ORDERED: Ondansetron HCl 2 MG / ML 2ML Vial IV PRN (12:00)
[2025-05-24] MEDS ORDERED: NS 1,000 ML IV SCH (12:00)
[2025-05-24] MEDS ORDERED: HYDROmorphone HCl/Pf 1MG SYR IV PRN (12:00)
[2025-05-24] MEDS ORDERED: Vancomycin (Pharmacy Consult) IV SCH (12:05)
[2025-05-24 12:26] LABS: Ferritin, Serum 1085.0 ng/mL (8-252); Total Iron Binding Capacity 248.0 ug/dL (250-450)
[2025-05-24] MEDS ORDERED: NS 250 ML IV PRN (14:15)
[2025-05-24 14:16] VITALS: BP 90/53
--- NOTE | 2025-05-24 14:34 | NUR ---
ADMIT PT REPORT RECEIVED FROM ER. PT ARRIVED TO RM 347 VIA GURNEY. 3 AND SLIDER SHEET TRANSFER TO BED. PT DAUGHTER IN ATTENDANCE. CARE ONGOING.
[2025-05-24 15:08] VITALS: BP 95/64
[2025-05-24 15:27] VITALS: BP 105/60
--- NOTE | 2025-05-24 15:51 | NUR ---
NOTE PT REFUSING TO ANSWER HISTORY QUESTIONS. SHE TURNS HER HEAD AWAY AND CLOSES HER EYES. DAUGHTER HAS LEFT. SONALI WILL BE BACK TOMORROW. CARE ONGOING.
[2025-05-24 16:30] VITALS: BP 115/60
[2025-05-24] MEDS ORDERED: Insulin Human Lispro 100 Units/ML 3ML Syringe SC SCH (16:30)
[2025-05-24 17:43] VITALS: BP 125/64
[2025-05-24] MEDS ORDERED: Ampicillin Sod/Sulbactam Sod 3 GM in NS 100 ML IV SCH (18:00)
--- NOTE | 2025-05-24 19:33 | NUR ---
NOTE PT RESTING QUIETLY. INTERACTS MINIMALLY. REFUSED DINNER. REFUSED TURNING/POSITION CHANGE. DENIED PAIN OR DISCOMFORT. AGREED TO ANTIBIOTICS. PRBC COMPLETED. NO ISSUES. VSS. PURWICK IN PLACE. NON VOID. IVF INFSUING AT 75ML/HR. CARE ONGOING.
[2025-05-24 20:26] VITALS: BP 118/58
[2025-05-24] MEDS ORDERED: Docusate Sodium/Senna 1 Tab PO SCH (21:00)
[2025-05-24] MEDS ORDERED: Lactobacil 2-S.Thermo-Bifido 1 1 Cap PO SCH (21:00)
--- NOTE | 2025-05-25 05:06 | NUR ---
PATIENT RESTED PEACEFULLY OVER NIGHT WITH NO ACUTE CHANGES. PURPOSEFUL ROUNDING COMPLETE. ALERT AND ORIENTED HOWEVER VERY UNINTERESTED IN HER CARE PLAN, FLAT AFFECT/DEPRESSION NOTED.
[2025-05-25 05:29] VITALS: BP 129/61
[2025-05-25 05:51] LABS: Hematocrit 25.1 % (33.0-51.0); Hemoglobin 8.0 g/dL (11.5-16.0); Mean Corpuscular HGB Conc 31.9 g/dL (31.5-36.5); Mean Corpuscular Volume 84 fL (80-100); NRBC ABSOLUTE 0.00 K/mm3 (0.00-0.02); NRBC Auto 0.0 /100 WBC (0.0-0.2); Platelet Count 475 K/mm3 (150-400); RDW Coefficient Variation 16.7 % (11.7-14.2); RDW Standard Deviation 50.2 fL (35.1-46.3)
[2025-05-25 06:26] LABS: Albumin, Blood 1.7 g/dL (3.4-5.0); Anion Gap 11 mmol/L (3-11); Blood Urea Nitrogen 30 mg/dL (8-24); CO2, Blood 20 mmol/L (21-32); Calcium, Blood 8.5 mg/dL (8.5-10.1); Chloride, Blood 105 mmol/L (98-108); Creatinine, Blood 0.93 mg/dL (0.40-1.00); Glucose, Blood 159 mg/dL (70-99); Magnesium, Blood 1.6 mg/dL (1.6-2.4); Phosphorus, Blood 2.5 mg/dL (2.5-4.9); Potassium, Blood 4.1 mmol/L (3.5-5.5); Sodium, Blood 132 mmol/L (136-145); Vancomycin, Random 15.0 ug/mL
[2025-05-25 07:37] VITALS: BP 116/64
[2025-05-25] MEDS ORDERED: Multivitamins 1 Tab PO SCH (09:00)
[2025-05-25] MEDS ORDERED: Cholecalciferol 1000 Unit Tablet (=25MCG) PO SCH (09:00)
[2025-05-25] MEDS ORDERED: NS 1,000 ML IV SCH (09:20)
--- NOTE | 2025-05-25 10:30 | NUR ---
DR CEBALLOS CONFIRMED THAT DR CEBALLOS WILL BE FOLLOWING THE PT WHILE IN THE HOSPITAL. CARE ON GOING.
[2025-05-25] MEDS ORDERED: Ampicillin Sod/Sulbactam Sod 3 GM in NS 100 ML IV SCH (12:00)
[2025-05-25 15:18] VITALS: BP 116/58
--- NOTE | 2025-05-25 19:36 | NUR ---
BKA PT VALLED NURSE INYO THR ROOM AND STATED, " I AM LEAVING AND YOU CAN'T STOP ME." SHE WAS UNDER THE IMPRESSION THAT SHE COULDN'T GET HER BKA SURGERY HERE AND NEEDED TO GO TO A DIFFERENT HOSPITAL. CALRIFIED THAT SHE HAD DECIDED TO HAVE HER LOWER LEG REMOVED. SHE STATED, "WELL OF COURSE. OTHERWISE I WILL ." CALLED DR TAYLOR. ORDER RECEIVED FOR ORTHO CONSULT. CALLED TO [facility]. PT DAUGHTER ARRIVED. TALKED WITH HER. SHE STARTED CRYING. SHE SEEMS OVER WHELMED. PT HAS A PROSTETIC AT HOME FOR HER RIGHT LE THAT SHE DOENS'T USE. DAUGHTER WILL BRING IT IN TOMORROW. DURING BEDSIDE REPORT PT CONTIUES TO DAYO BELIEVE THAT HER SURGERY IS POSSIBLE HERE. REORIENTED AND REASSURED. CARE ONGOIONG.
[2025-05-25 19:41] VITALS: BP 130/55
[2025-05-26] VITALS (12 sets, daily range): BP systolic 94–127; BP diastolic 54–87
--- NOTE | 2025-05-26 04:19 | NUR ---
PT C/O PAIN IN/AROUND HER IV SITE, SO WE REMOVED THAT IV AND REPLACED IT. IV HAS BEEN INFUSING SINCE WITHOUT PAIN. NO OTHER ISSUES OVER NIGHT. PATIENT RESTING. VITALS STABLE. NPO @ MN
[2025-05-26] MEDS ORDERED: Tranexamic Acid 100 ML IV SCH (08:00)
--- NOTE | 2025-05-26 10:57 | NUR ---
OUT OF ROOM NOTE: PATIENT LEFT THE ROOM TRANSPORTED VIA GURNEY AT THIS TIME BY JUAN DAY SURGERY RN TO PRE-OP FOR Lilibeth THOMAS.
--- NOTE | 2025-05-26 11:16 | NUR ---
PT TO UNIT VIA GURN, TRANSFERRED WITH SLIDER SHEET AND 3 STAFF MEMBERS IN PT'S ROOM. PT'S NECKLACE REMOVED IN HER ROOM, PLACED IN SPECIMEN CUP AND PLACED NEXT TO HER CELL PHONE ON THE BEDSIDE TABLE. History, Chart, Medications and Allergies reviewed before start of procedure. NO FAMILY IN ROOM WITH PT AT THIS TIME. Patient confirms NPO status and agrees with scheduled surgery.
[2025-05-26] MEDS ORDERED: FentaNYL Citrate 50 MCG/ML 2 ML Injection ONE ×2 (11:17→13:19)
[2025-05-26] MEDS ORDERED: Ondansetron HCl 2 MG / ML 2ML Vial ONE (11:24)
[2025-05-26] MEDS ORDERED: SuccINYLCHOLINE Chloride 100 MG/5 ML 5MLSYR ONE (11:24)
[2025-05-26] MEDS ORDERED: Ketorolac Tromethamine 30mg Vial ONE (11:24)
[2025-05-26] MEDS ORDERED: Dexamethasone Sod Phos 10 MG/ML 1ML VIAL ONE (11:24)
[2025-05-26] MEDS ORDERED: Rocuronium Bromide 10 MG/ML 5ML Injection IV ONE (11:24)
[2025-05-26] MEDS ORDERED: Phenylephrine HCl 100 MCG/ML-NS 10MLSYR (1MG/10ML) ONE (12:02)
[2025-05-26] MEDS ORDERED: Sugammadex Sodium 200 MG/2ML SDV (100 MG/ML) ONE (12:04)
[2025-05-26] MEDS ORDERED: FentaNYL Citrate 50 MCG/ML 2 ML Injection IV PRN ×2 (12:15)
[2025-05-26] MEDS ORDERED: Ondansetron HCl 2 MG / ML 2ML Vial IV PRN ×2 (12:15→13:50)
[2025-05-26] MEDS ORDERED: HYDROmorphone HCl/Pf 1MG SYR IV PRN ×3 (12:15→13:55)
[2025-05-26] MEDS ORDERED: Naloxone HCl 0.4MG / ML 1ML Vial IV PRN (13:50)
[2025-05-26] MEDS ORDERED: Magnesium Hydroxide Conc 10 ML UDC PO PRN (13:55)
[2025-05-26] MEDS ORDERED: [UNRECOGNIZED DRUG - CODE] PO (16:13)
[2025-05-26] MEDS ORDERED: ONDA4 PO (16:14)
[2025-05-26] MEDS ORDERED: MIRT15 PO (16:14)
--- NOTE | 2025-05-26 18:00 | NUR ---
SHIFT SUMMARY: PATIENT WAS CONFUSED, AGITATED PULLED HER PIV ACCESS AND L STUMP DRESSING/SOCK WHILE AT RECOVERY. PATIENT CAME BACK TO ROOM AT 1330'S, CONFUSED, AGITATED, REPORTS PAIN 10/10 TO L STUMP. PATIENT MEDICATED c PO OXYCODONE c NO EFFECT. PIV IN PLACED, MEDICATED c IV DILAUDID 0.5 MG c GOOD EFFECT. PATIENT L STUMP DRESSING/SOCK IN PLACED AND ELEVATED ON PILLOW. POST-OP VITALS TAKEN. BLADDER SCAN AT 1748 c 290 MLS IN BLADDER, PATIENT REPORTS SHE HAS NO URGE OR DOES NOT FEEL LIKE TO URINATE. PATIENT RECEIVED SCHEDULED MEDS PER EMAR. PATIENT DAUGHTER AT BEDSIDE. PATIENT ALERT AND ORIENTED, FORGETFUL AT TIMES, BUT EASILY REDIRECTABLE, CIRCLE, APPEARS WITHDRAWN AND HAS FLAT AFFECT. PATIENT HAS BAR EXAMINER, RA SATTING 95-98%. PATIENT DENIES CP/PRESSURE, SOB, N/V AND DIZZINESS. BED ALARM ON FOR SAFETY. CALL LIGHT IN REACH.
[2025-05-26 20:47] LABS: Vancomycin, Trough 15.4 ug/mL (5.0-10.0)
[2025-05-27] VITALS (18 sets, daily range): BP systolic 84–130; BP diastolic 38–85
[2025-05-27 05:45] LABS: BASOPHILS ABSOLUTE AUTO 0.04 K/mm3 (0.00-0.23); BASOPHILS PERCENT AUTO 0 % (0-2); EOSINOPHILS ABSOLUTE AUTO 0.00 K/mm3 (0.00-0.68); EOSINOPHILS PERCENT AUTO 0 % (0-6); Hematocrit 24.1 % (33.0-51.0); Hemoglobin 7.2 g/dL (11.5-16.0); IMMATURE GRAN ABSOLUTE AUTO 0.45 K/mm3 (0.00-0.10); IMMATURE GRAN PERCENT AUTO 2 % (0-1); LYMPHOCYTES ABSOLUTE AUTO 1.19 K/mm3 (0.84-5.20); LYMPHOCYTES PERCENT AUTO 6 % (21-46); MONOCYTES ABSOLUTE AUTO 0.45 K/mm3 (0.16-1.47); MONOCYTES PERCENT AUTO 2 % (4-13); Mean Corpuscular HGB Conc 29.9 g/dL (31.5-36.5); NEUTROPHILS ABSOLUTE AUTO 18.72 K/mm3 (1.96-9.15); NEUTROPHILS PERCENT AUTO 90 % (41-73); NRBC ABSOLUTE 0.00 K/mm3 (0.00-0.02); NRBC Auto 0.0 /100 WBC (0.0-0.2); Platelet Count 709 K/mm3 (150-400); RDW Coefficient Variation 17.3 % (11.7-14.2); RDW Standard Deviation 56.4 fL (35.1-46.3)
[2025-05-27 05:47] LABS: Mean Corpuscular Volume 89 fL (80-100)
[2025-05-27 06:06] LABS: Albumin, Blood 1.7 g/dL (3.4-5.0); Anion Gap 21 mmol/L (3-11); Blood Urea Nitrogen 30 mg/dL (8-24); CO2, Blood 11 mmol/L (21-32); Calcium, Blood 7.9 mg/dL (8.5-10.1); Chloride, Blood 105 mmol/L (98-108); Creatinine, Blood 1.16 mg/dL (0.40-1.00); Glucose, Blood 314 mg/dL (70-99); Magnesium, Blood 1.7 mg/dL (1.6-2.4); Phosphorus, Blood 5.0 mg/dL (2.5-4.9); Potassium, Blood 5.3 mmol/L (3.5-5.5); Sodium, Blood 132 mmol/L (136-145)
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
[2025-05-27] MEDS ORDERED: NS 500 ML IV SCH (11:05)
--- NOTE | 2025-05-27 15:38 | NUR ---
PATIENT RECIEVING BLOOD TRANSFUSION SINCE 1250. AT APPROXIMATELY 1520 PATIENT BEGAN TO COMPLAIN OF RUQ PAIN, PATIENT STATED "IT IS SHARP AND IT HURTS." POSITIONING WAS UNSUCCESSFUL AT RELIEVING THE PAIN. VITALS WERE IN AN ACCEPTABLE RANGE AT THIS TIME. NOTIFIED CHARGE NURSE, CALL PLACED TO PHYSICIAN. PHYSICIAN ADVISED OF ABOVE AND THAT ABOUT 120MLS WERE LEFT OF THE PRBC TO BE INFUSED. PHYSICIAN STATED SHE WOULD PUT IN AN ORDER FOR BENADRYL AND TO COMPLETE THE TRANSFUSION. BEFORE BENADRYL COULD BE ADMINISTERED AT 1535 PATIENT REPORTED THE PAIN IS NOW GONE. DISCUSSED GIVING BENADRYL AND GIVING PRN PAIN MEDICATION. PATIENT WAS AMENABLE TO THIS PLAN.
--- NOTE | 2025-05-27 18:07 | NUR ---
SHIFT SUMMARY: PATIENT EEK, A/OX2-3 c INTERMITTENT CONFUSION, BUT EASILY REDIRECTABLE. PATIENT POD#1 L BKA, DRESSING C/D/I, STUMP ELEVATED ON PILLOW. PATIENT RECEIVED 1 UNIT PRBC. PATIENT REPORTS RUQ ABDOMINAL "SHARP PAIN" 10/10 AND 50 CC BROWN/BILE COLOR EMESIS. PATIENT SBP SOFT, BUT STABLE c A (MAP 68-80'S), DENIES CP/PRESSURE, SOB AND DIZZINESS. PATIENT HAS HYPOACTIVE BT. NOTIFIED DR. VANEGAS, CAME TO ROOM AND ASSESS THE PATIENT. DR. VANEGAS ORDERED X-RAY TO ABDOMEN c RESULT SHOWED COLONIC FECAL RETENTION WITHOUT EVIDENCE OF OBSTRUCTION. PATIENT RECEIVED RECTAL SUPPOSITORY PER ORDER. PATIENT REFUSED ALL MEALS THIS SHIFT. PATIENT HAS HAD NO URINE OUTPUT THIS SHIFT, BLADDER SCAN WERE PERFORMED AT 1430, WHICH SHOWED 252 MLS IN BLADDER. PATIENT STATED, "I DON'T FEEL LIKE I HAVE TO PEE." PATIENT DENIES SUPRAPUBIC TENDERNESS/PAIN. WCTM. PATIENT ON CONTINUES NS-KCL AT 75 MLS/HR. BED ALARM ON FOR SAFETY. CALL LIGHT IN REACH.
[2025-05-27] MEDS ORDERED: Enoxaparin 30 MG/0.3 ML SYR SC SCH (19:00)
--- NOTE | 2025-05-27 21:24 | NUR ---
SPOKE WITH DR ALDANA TO CLARIFY ABOUT LOVENOX DUE TO PATIENT RECEIVING PRBC'S THIS MORNING, DR ALDANA STATES TO GIVE LOVENOX TONIGHT.
[2025-05-28] MEDS ORDERED: Water 500ML With 1 PKT Castile Soap Enema PR ONE (03:50)
[2025-05-28 04:47] VITALS: BP 116/61
--- NOTE | 2025-05-28 05:56 | NUR ---
PATIENT HAS BEEN COMPLAINING OF RUQ PAIN FOR A MAJOR PART OF THE NIGHT. TWO DOSES OF PRN PAIN MEDICATION WAS GIVEN WITH LITTLE TO NO RELIEF. ALL BOWEL MANAGEMENT MEDICATIONS AVAILBLE WERE GIVEN PATIENT HAS NOT HAS A BM DOCUMENTED DURING HER HOSPITAL STAY. DR SHAH WAS CALLED AROUND 0400 FOR AN ORDER FOR A SOAP SUDS ENEMA. ENEMA WAS GIVEN AND PATIENT HAD SOME WATERY STOOL ASSOCIATED WITH THAT ENEMA. PATIENT CONTINUES TO COMPLAIN OF PAIN HOWEVER IT IS NOT BAD IT WAS AND SEEMS TO BE TOLERABLE, PATIENT DENIES MORE PAIN MEDICATION AT THIS TIME. VITALS HAVE BEEN RELATIVELY STABLE HOWEVER HER O2 SATS DID DROP SOME WHILE SHE WAS TAKING A SHORT NAP AND 2L NC WAS PLACED TO BRING HER SATURATIONS BACK TO A DESIREABLE LEVEL.
[2025-05-28 07:24] VITALS: BP 101/58
[2025-05-28 08:55] LABS: BASOPHILS ABSOLUTE AUTO 0.03 K/mm3 (0.00-0.23); BASOPHILS PERCENT AUTO 0 % (0-2); Hematocrit 26.6 % (33.0-51.0); Hemoglobin 8.4 g/dL (11.5-16.0); LYMPHOCYTES ABSOLUTE AUTO 0.98 K/mm3 (0.84-5.20); LYMPHOCYTES PERCENT AUTO 7 % (21-46); MONOCYTES ABSOLUTE AUTO 0.36 K/mm3 (0.16-1.47); MONOCYTES PERCENT AUTO 3 % (4-13); Mean Corpuscular HGB Conc 31.6 g/dL (31.5-36.5); Mean Corpuscular Volume 86 fL (80-100); NRBC ABSOLUTE 0.07 K/mm3 (0.00-0.02); NRBC Auto 0.5 /100 WBC (0.0-0.2); Platelet Count 580 K/mm3 (150-400); RDW Coefficient Variation 16.9 % (11.7-14.2); RDW Standard Deviation 52.8 fL (35.1-46.3)
[2025-05-28 08:58] LABS: EOSINOPHILS ABSOLUTE AUTO 0.00 K/mm3 (0.00-0.68); EOSINOPHILS PERCENT AUTO 0 % (0-6); IMMATURE GRAN ABSOLUTE AUTO 0.21 K/mm3 (0.00-0.10); IMMATURE GRAN PERCENT AUTO 2 % (0-1); NEUTROPHILS ABSOLUTE AUTO 11.97 K/mm3 (1.96-9.15); NEUTROPHILS PERCENT AUTO 88 % (41-73)
[2025-05-28 09:11] LABS: Anion Gap 18.0 mmol/L (3-11); Blood Urea Nitrogen 46.0 mg/dL (8-24); CO2, Blood 15.0 mmol/L (21-32); Calcium, Blood 7.3 mg/dL (8.5-10.1); Chloride, Blood 107.0 mmol/L (98-108); Creatinine, Blood 2.1 mg/dL (0.40-1.00); Glucose, Blood 211.0 mg/dL (70-99); Potassium, Blood 5.2 mmol/L (3.5-5.5); Sodium, Blood 135.0 mmol/L (136-145)
[2025-05-28 09:19] LABS: Vancomycin, Trough 30.8 ug/mL (5.0-10.0)
--- NOTE | 2025-05-28 11:49 | NUR ---
DR RUBIO AT BEDSIDE AND COMPLETED LEFT STUMP DRESSING CHANGE. CLEANSED SUTURE LINE WITH WOUND CLEANSER AND PATTED DRY. ABD APPLIED AND STUMP SOCK TO COVER DRESSING. TAPE APPLIED TO UPPER THIGH TO KEEP SOCK IN PLACE. INSTRUCTED RN TO NOT WRAP TAPE ALL THE WAY AROUND THIGH
[2025-05-28] MEDS ORDERED: NS 1,000 ML IV SCH (12:15)
--- NOTE | 2025-05-28 13:30 | NUR ---
BOWEL CARE NOTE: SOAP SUDS ENEMA AND LACTULOSE GIVEN AT 1310 PER ORDER. PATIENT HAD SMALL BROWN PELLETS COMING OUT, WCTM T/O SHIFT.
[2025-05-28 16:21] VITALS: BP 100/58
--- NOTE | 2025-05-28 17:24 | NUR ---
SHIFT SUMMARY RIVERA HAS RECIEVED BOWEL CARE PER ORDER TODAY. SO FAR 2 SMALL BOWEL MOVEMENTS THIS SHIFT. POWELL CATHETER INSERTED PER PROVIDER ORDER FOR ACUTE URINARY RETENTION, 200ML RETURN UPON INSERTION. PATIENT CONTINUES TO HAVE EPISODES OF CONFUSION BUT REDIRECTABLE. POD#[address] RUBIO DID DRESSING CHANGE TODAY. PATIENT CONTINUES TO DECLINE ORAL INTAKE. MINIMAL FLUIDS PO. CURRENTLY RUNNING NS AT 75ML/HR. RECIEVED SCHEDULED MEDS PER EMAR. SYSTOLIC BP STILL SOFT BUT STABLE. BED IN LOWEST POSITION, BED ALARM ON.
[2025-05-28] MEDS ORDERED: Ampicillin Sod/Sulbactam Sod 3 GM in NS 100 ML IV SCH (18:00)
--- NOTE | 2025-05-28 22:27 | NUR ---
PT DAUGHTER IN ROOM WITH PT AFTER SHIFT CHANGE WAS ASKING IF PT COULD BE MADE DNR CODE STATUS THEY REPORTED THAT PT HAS BEEN DECLINING FOR PAST MONTH AFTER PASSING OF SPOUSE, AND HAS NOT EATING MUCH SINCE THIS PAST THURSDAY. THEY WILL BE BACK TOMORROW MORNING AROUND 0930 TO SPEAK TO CARE MANAGEMENT/PALLIATIVE CARE TOMORROW TO DISCUSS SITUATION.
[2025-05-29] VITALS (19 sets, daily range): BP systolic 58–186; BP diastolic 27–153
[2025-05-29 05:08] LABS: pH Blood Venous 7.07 (7.34-7.37)
[2025-05-29 05:10] LABS: BASOPHILS ABSOLUTE AUTO 0.09 K/mm3 (0.00-0.23); BASOPHILS PERCENT AUTO 1 % (0-2); Hematocrit 25.5 % (33.0-51.0); Hemoglobin 7.7 g/dL (11.5-16.0); LYMPHOCYTES ABSOLUTE AUTO 1.49 K/mm3 (0.84-5.20); LYMPHOCYTES PERCENT AUTO 8 % (21-46); MONOCYTES ABSOLUTE AUTO 0.52 K/mm3 (0.16-1.47); MONOCYTES PERCENT AUTO 3 % (4-13); Mean Corpuscular HGB Conc 30.2 g/dL (31.5-36.5); Mean Corpuscular Volume 90 fL (80-100); NRBC ABSOLUTE 0.37 K/mm3 (0.00-0.02); NRBC Auto 1.9 /100 WBC (0.0-0.2); Platelet Count 555 K/mm3 (150-400); RDW Coefficient Variation 17.6 % (11.7-14.2); RDW Standard Deviation 57.2 fL (35.1-46.3)
[2025-05-29] MEDS ORDERED: NS 1,000 ML IV ONE (05:27)
--- NOTE | 2025-05-29 05:27 | NUR ---
GUNITE MIXER TO ICU: PT ARRIVED TO ICU A RAPID RESPONSE FROM MEDICAL FLOOR AT 0527. UPON ARRIVAL PT WAS ARNOLD IN APPEARANCE AND NOT RESPONSIVE TO PAINFUL OR VERBAL STIMULI. PT ARRIVED ON 15L NON-REBREATHER. UNABLE TO OBTAIN ACCURATE SPO2 READING R/T POOR PERFUSION. PT BP STARTED DECLINING AND WAS STARTED ON LEVOPHED PER DR. ESCAMILLA. TIME OF EVENTS: LEVOPHED 6 MCG/MIN (MAP 52) @ 0554 PHENYLEPHRINE 50 MCG @ 0556 IO PLACED TO RIGHT LEG SUCCESSFULLY WITH BLOOD RETURN @ 0557 AMP OF BICARB GIVEN @ 0559 LEVOPHED INCREASED TO 8 MCG/MIN (MAP 59) @ 0601 PHENYLEPHRINE 50 MCG @ 0603 LEVOPHED INCREASED TO 12 MCG/MIN (MAP 57) @ 0604 PHENYLEPHRINE 100 MCG @ 0604 PHENYLEPHRINE 100 MCG @ 0609 VERSED 2 MG @ 0609 PT INTUBATED WITH POSITIVE COLOR CHANGE ETT 7.5/23 @TEETH @ 0609 VENT SETTINGS AC/VC 22/500/50/100% D5 WITH BICARB DRIP STARTED @0610 AT 200 ML/HR LEVOPHED INCREASED TO 15 MCG/MIN (MAP 55) @ 0617 LEVOPHED INCREASED TO 17 MCG/MIN (MAP 55) @ 0623 LEVOPHED INCREASED TO 20 MCG/MIN (MAP 58) @ 0626 VASOPRESSIN GTT STARTED AT 0.04 UNITS/MIN @ 0636 MAGNESIUM PUSH 2 GRAM ADMINISTERED @ 0657 CODE: PT CODED AT 0648, VTACH ON THE MONITOR THEN PEA, CPR INITIATED, 1 MG EPI ADMINISTERED AT 0648. PULSE CHECK AT 0651, ROSC WITH HR 99. CODE: PT AGAIN CODED AT 0706, PEA NOTED. CPR INITIATED. CALCIUM CHLORIDE 1 GRAM GIVEN @ 0707 DEXTROSE 50 GRAM GIVEN @ 0709 PULSE CHECK @ 0708- NO PULSE CPR RESUMED PULSE CHECK @ 0710- ROSC WITH HR 80'S 5 UNITS IV INSULIN ADMINISTERED @ 0711. DR. ESCAMILLA REMAINED AT BEDSIDE DURING GUNITE MIXER. CENTRAL LINE PLACED TO [facility]. X-RAY CONFIRMED PLACEMENT. PT DAUGHTER AT THE BEDSIDE BEFORE CENTRAL LINE INSERTION AND UPDATED TO PT CONDITION. HANDOFF GIVEN TO ANGEL CAMP AT 0715.
[2025-05-29 05:35] LABS: EOSINOPHILS ABSOLUTE AUTO 0.07 K/mm3 (0.00-0.68); EOSINOPHILS PERCENT AUTO 0 % (0-6); IMMATURE GRAN ABSOLUTE AUTO 0.93 K/mm3 (0.00-0.10); IMMATURE GRAN PERCENT AUTO 5 % (0-1); NEUTROPHILS ABSOLUTE AUTO 16.57 K/mm3 (1.96-9.15); NEUTROPHILS PERCENT AUTO 84 % (41-73)
[2025-05-29] MEDS ORDERED: Sodium Bicarb 8.4% Inj 150 MEQ in Dextrose 5% 1,000 ML IV SCH (05:40)
[2025-05-29 05:44] LABS: Anion Gap 24 mmol/L (3-11); Blood Urea Nitrogen 47 mg/dL (8-24); CO2, Blood 7 mmol/L (21-32); Calcium, Blood 7.5 mg/dL (8.5-10.1); Chloride, Blood 110 mmol/L (98-108); Creatinine, Blood 2.84 mg/dL (0.40-1.00); Glucose, Blood 144 mg/dL (70-99); Potassium, Blood 6.2 mmol/L (3.5-5.5); Sodium, Blood 135 mmol/L (136-145); Vancomycin, Random 27.5 ug/mL
[2025-05-29] MEDS ORDERED: Ketamine HCl 100 MG / ML 5ML Vial IV ONE ×2 (05:55→06:25)
[2025-05-29 06:05] LABS: BAND PERCENT MAN 28 % (0-8); BASOPHILS ABSOLUTE MAN 0.00 K/mm3 (0.00-0.23); BASOPHILS PERCENT MAN 0 % (0-2); EOSINOPHILS ABSOLUTE MAN 0.00 K/mm3 (0.00-0.68); EOSINOPHILS PERCENT MAN 0 % (0-6); LYMPHOCYTES ABSOLUTE MAN 1.96 K/mm3 (0.84-5.20); LYMPHOCYTES PERCENT MAN 10 % (21-46); METAMYELOCYTE ABSOLUTE MAN 0.39 K/mm3 (0.00-0.00); METAMYELOCYTE PERCENT MAN 2 % (0-0); MONOCYTES ABSOLUTE MAN 0.39 K/mm3 (0.16-1.47); MONOCYTES PERCENT MAN 2 % (4-13); MYELOCYTE ABSOLUTE MAN 0.19 K/mm3 (0.00-0.00); MYELOCYTE PERCENT MAN 1 % (0-0); NEUTROPHILS ABSOLUTE MAN 16.71 K/mm3 (1.96-9.15); SEG NEUTROPHILS PERCENT MAN 57 % (41-73)
[2025-05-29] MEDS ORDERED: Vasopressin 20 UNITS in NS 100 ML IV SCH (06:25)
[2025-05-29] MEDS ORDERED: Ketamine HCL 100 MG in NS 100 ML IV SCH (06:35)
[2025-05-29] MEDS ORDERED: Insulin Regular 100 UNIT/ML 10ML Vial ONE (07:08)
[2025-05-29] MEDS ORDERED: EPINEPHrine HCL 4 MG in NS 250 ML IV SCH (07:25)
[2025-05-29] MEDS ORDERED: Insulin Regular 100 UNIT/ML 10ML Vial IV ONE (07:30)
--- NOTE | 2025-05-29 07:42 | NUR ---
SHIFT SUMMARY NOC PT A/O 1-2. CONFUSED AND NOT INTERESTED IN CARE, REFUSED EVENING VITAL SIGNS. PT WAS UNABLE TO TAKE BEDTIME MEDS DUE TO LETHARGY AND WHEN ASKED SAID THAT THEY DID NOT FEEL LIKE THEY COULD TAKE THEM SAFELY. PT HAD C/O OF R BKA/ABD PAIN AND RECEIVED SUPPOSITORY TYLENOL. PT DAUGHTER WAS IN ROOM AT BEGINNING OF SHIFT AND IS CONCERNED WITH PT CONTINUED DECLINE IN THE PAST MONTH SINCE THE PT SPOUSE PASSED. SHE ASKED IF PT COULD BE DNR, AND WAS ADVISED TO TALK WITH CARE MANAGEMENT/PALLIATIVE IN MORNING TO DISCUSS PLAN GOING FORWARD IF PT IS UNABLE TO MAKE DECISIONS ON THEIR OWN. PT WILL BE IN AROUND 0930 THIS MORNING TO DISCUSS CONCERNS. PT DID NOT HAVE BOWEL MOVEMENT, BUT WHEN SUPPOSITORY GIVEN SOFT STOOL WAS ON GLOVE AFTER INSERTION. PT HAS NS INFUSING @ 125 ML/HR. AT END OF SHIFT PT BREATHING BECAME LABORED AND PT WAS IN RESPIRATORY DISTRESS HOSPITALIST CAME TO SEE PT BP 89/56 AND RR 26, STAT VBG. LACTIC AND CBG 97. PT CAME BACK WITH CRITICAL PH 7.07 AND PT BEGAN AGONAL BREATHING , BOXING AND PRESSING SUPERVISOR CALLED AND PT TRANSFERRED TO ICU 03. PT CURRENTLY RESTING WITH BED ALARM ON, BED IN LOWEST POSITION, AND CALL LIGHT WITHIN REACH.
--- NOTE | 2025-05-29 07:49 | NUR ---
PT TRANSFERRED TO ICU 03 WITH SWITCHBOARD MECHANIC TEAM @ 1898 AND GAVE REPORT TO ICU 03 ZOË ZULETA. BELONGINGS AND MEDICATIONS ARRIVED WITH PT TO UNIT.
[2025-05-29] MEDS ORDERED: Meropenem 2,000 MG in NS 250 ML IV SCH (08:00)
--- NOTE | 2025-05-29 08:10 | NUR ---
POST MORTUM SUPPORT FOR DTR, SONALI. PT WAS A RAPID RESPONSE THEN CODED AND TRANSFERED TO ICU. THIS PC RN WAS CALLED BY DAY SHIFT DRAW TENDER FOR FAMILY SUPPORT PT HAD PASSED. THERAPUTIC LISTENING PROVIDED. DTR IS VERY TEARFUL. HOWEVER, SHE DISPLAYS SIGNS OF COPING SKILLS. DTR TALKED ABOUT PT'S HSBD PASSING ON APRIL 22, 2025 AND PT'S SEVERE DECLINE SINCE THEN. DTR DECLINED RESIN FILTERER AND STATED HER MOM WOULD NOT WANT A RESIN FILTERER EITHER. HOME [facility] CHOICE IS [facility]. PRECISION INSTRUMENT AND TOOL MAKER NOTIFIED. NOTE PLACED ON FACESHEET FOR HOME TO DELAY CONTACTING DRT UNTIL THIS AFTERNOON WHEN PT'S SON GETS IN TO TOWN.
--- NOTE | 2025-05-29 08:34 | NUR ---
CARE ASSUMPTION/COMFORT CARE THIS RN RECIEVED BEDSIDE REPORT FROM SONG RN. AT THIS TIME PT IS INTUBATED AND ON THE VENTILATOR. MONITOR SHOWING WHAT APPEARED TO BE JUNCTIONAL RYTHYM IN THE 80'S. NOC RN REPORTING PT RECIEVED ONE ROUND OF CPR JUST PRIOR TO THIS RN COMING TO THE FLOOR. PT HAD RYTHYM CHANGE DURING REPORT WHICH APPEARED TO BE A PULSELESS VTACH. NO PULSE WAS LOCATED PER DOPPLER SO CPR AGAIN INITIATED. DR. ESCAMILLA AT BEDSIDE AT THIS TIME. ROSC OBTAINED BUT PT BECAME INCREASINGLY HYPOTENSIVE. WITH VASOPRESSIN AND LEVOPHED GTT'S TITRATED UP TO THEIR MAX DOSES ADDITIONAL 1MG IV EPI GIVEN PER DR. HESTER. BP IMPROVED FOR A SHORT TIME BUT PT BECAME MORE HYPOTENSIVE THE PT'S DAUGHTER SONALI WHO WAS AT BEDSIDE DECIDED TO NOT CONTINUE WITH CPR AND MAKE THE PT COMFORT CARE. BEFORE CARE COULD BE DEESCALATED PT AGAIN HAD A RYTHYM CHANGE AND LOST HER PULSE. TOSilvina CALLED AT 0735. DR. MARQUEZ AT BEDSIDE DURING TOD AND SPOKE W DAUGHTER.
--- NOTE | 2025-05-29 09:36 | NUR ---
Spiritual care visited attempted. Upon receiving a request for spiritual care to check-in with family, I appraoched the patient's dtr, Madeline, who immediately indicated that spiritual care will not be needed. I will continue to remain available.
== END 2025-05-29 07:35 | DRG 856 ==
LOC: ER 09:25 → MEDS 11:54 → ICUE 11:54 → MEDS 13:54 → ICUE 05-29 05:24
PROVIDERS: Emergency Medicine; Hospitalist; Orthopaedic Surgery; Student in an Organized Health Care Education/Training Program; ADMIT Internal Medicine
PROC: 30233N1 Transfusion of Nonautologous Red Blood Cells into Peripheral Vein, Percutaneous Approach (ICD-10-PCS; 2025-05-24)
PROC: 3E03329 Introduction of Other Anti-infective into Peripheral Vein, Percutaneous Approach (ICD-10-PCS; 2025-05-24)
PROC: 0T9B70Z Drainage of Bladder with Drainage Device, Via Natural or Artificial Opening (ICD-10-PCS; 2025-05-26)
PROC: 0Y6J0Z1 Detachment at Left Lower Leg, High, Open Approach (ICD-10-PCS; principal; 2025-05-26 11:30)
PROC: 3E033XZ Introduction of Vasopressor into Peripheral Vein, Percutaneous Approach (ICD-10-PCS; 2025-05-29)
PROC: 0BH17EZ Insertion of Endotracheal Airway into Trachea, Via Natural or Artificial Opening (ICD-10-PCS; 2025-05-29)
PROC: 5A1935Z Respiratory Ventilation, Less than 24 Consecutive Hours (ICD-10-PCS; 2025-05-29)
PROC: 02HV33Z Insertion of Infusion Device into Superior Vena Cava, Percutaneous Approach (ICD-10-PCS; 2025-05-29)
PROC: 3E043XZ Introduction of Vasopressor into Central Vein, Percutaneous Approach (ICD-10-PCS; 2025-05-29)
PROC: 5A12012 Performance of Cardiac Output, Single, Manual (ICD-10-PCS; 2025-05-29)
DX: T81.49XA Infection following a procedure, other surgical site, initial encounter (principal); J96.01 Acute respiratory failure with hypoxia; N17.0 Acute kidney failure with tubular necrosis; M86.8X7 Other osteomyelitis, ankle and foot; E87.20 Acidosis, unspecified; D62 Acute posthemorrhagic anemia; Z66 Do not resuscitate; Z51.5 Encounter for palliative care; E08.69 Diabetes mellitus due to underlying condition with other specified complication; L97.529 Non-pressure chronic ulcer of other part of left foot with unspecified severity; I70.245 Atherosclerosis of native arteries of left leg with ulceration of other part of foot; D63.8 Anemia in other chronic diseases classified elsewhere; I10 Essential (primary) hypertension; K59.09 Other constipation; R54 Age-related physical debility; F32.A Depression, unspecified; T36.96XA Underdosing of unspecified systemic antibiotic, initial encounter; I46.9 Cardiac arrest, cause unspecified; E86.0 Dehydration; I95.9 Hypotension, unspecified; E87.5 Hyperkalemia; L08.89 Other specified local infections of the skin and subcutaneous tissue; B95.7 Other staphylococcus as the cause of diseases classified elsewhere; L89.151 Pressure ulcer of sacral region, stage 1; Z91.138 Patient's unintentional underdosing of medication regimen for other reason; Z86.14 Personal history of Methicillin resistant Staphylococcus aureus infection; Z89.422 Acquired absence of other left toe(s); Z88.8 Allergy status to other drugs, medicaments and biological substances; Z79.84 Long term (current) use of oral hypoglycemic drugs; Z79.82 Long term (current) use of aspirin; Z89.511 Acquired absence of right leg below knee; Z63.4 Disappearance and death of family member; Y83.8 Other surgical procedures as the cause of abnormal reaction of the patient, or of later complication, without mention of misadventure at the time of the procedure
CPT/HCPCS: 31500; 36415; 36416; 36430; 36556; 71045; 73620; 74018; 80048; 80053; 80069; 80202; 82728; 82803; 82947; 83540; 83550; 83605; 83735; 85025; 85027; 86140; 86850; 86900; 86901; 86923; 87070; 87075; 87147; 87205; 88307; 94002; 94762; 96365; 96375; 97162; 97530; 99284-25; A9270; C1751; J0295; J0330; J1100; J1171; J1650; J1815; J1885; J2250; J2371; J2405; J2543; J2704; J3010; J3373; J3475; J3480; J7030; J7040; J7050; J7070; J7120; P9016